=== PATIENT | female | born 1960 | race Caucasian/White ===

== ENCOUNTER → 2016-02-14 | Outpatient (REF) | payer OTHER | LOC: M LAB REF 16:44 | PROVIDERS: ATTEND Internal Medicine Medical Oncology | DX: E83.119 Hemochromatosis, unspecified (principal) ==

== ENCOUNTER → 2016-02-27 | Outpatient (REF) | payer OTHER | LOC: M LAB REF 16:43 | PROVIDERS: ATTEND Nurse Practitioner Adult Health | DX: L03.211 Cellulitis of face (principal) ==

== ENCOUNTER → 2016-03-20 | Outpatient (REF) | payer OTHER | LOC: M LAB REF 16:37 | PROVIDERS: ATTEND Internal Medicine Medical Oncology | DX: E83.119 Hemochromatosis, unspecified (principal) ==

== ENCOUNTER → 2016-04-18 | Outpatient (REF) | payer OTHER | LOC: M LAB REF 12:45 | PROVIDERS: ATTEND Internal Medicine Medical Oncology | DX: E83.110 Hereditary hemochromatosis (principal) ==

== ENCOUNTER → 2016-05-23 | Outpatient (REF) | payer OTHER | LOC: M LAB REF 18:37 | PROVIDERS: ATTEND Nurse Practitioner Adult Health | DX: J02.9 Acute pharyngitis, unspecified (principal) ==

== ENCOUNTER → 2016-05-30 | Outpatient (REF) | payer OTHER ==
[2016-05-30 18:19] LABS: PERCENT SATURATION 15.6 % (13.2-37.4)
== END ==
LOC: M LAB REF 16:25
PROVIDERS: ATTEND Internal Medicine Medical Oncology
DX: E83.119 Hemochromatosis, unspecified (principal)

== ENCOUNTER → 2016-06-27 | Outpatient (REF) | payer OTHER ==
[2016-06-27 18:00] LABS: PERCENT SATURATION 26.9 % (13.2-37.4)
== END ==
LOC: M LAB REF 16:41
PROVIDERS: ATTEND Internal Medicine Medical Oncology
DX: E83.119 Hemochromatosis, unspecified (principal)

== ENCOUNTER → 2016-07-01 | Outpatient (REF) | payer OTHER | LOC: M LAB REF 16:49 | PROVIDERS: ATTEND Internal Medicine Medical Oncology | DX: E83.119 Hemochromatosis, unspecified (principal) ==

== ENCOUNTER → 2016-08-06 | Outpatient (REF) | payer OTHER ==
[2016-08-06 13:59] LABS: PERCENT SATURATION 29.4 % (13.2-37.4)
== END ==
LOC: M LAB REF 13:13
PROVIDERS: ATTEND Internal Medicine Medical Oncology
DX: E83.110 Hereditary hemochromatosis (principal)

== ENCOUNTER → 2016-09-03 | Outpatient (REF) | payer OTHER ==
[2016-09-03 13:26] LABS: FERRITIN 72 NG/ML (8-252)
== END ==
LOC: M LAB REF 12:12
PROVIDERS: ATTEND Nurse Practitioner Adult Health
DX: E83.119 Hemochromatosis, unspecified (principal)

== ENCOUNTER → 2016-10-29 | Outpatient (REF) | payer OTHER ==
[2016-10-29 20:07] LABS: PERCENT SATURATION 23.4 % (13.2-45.0)
== END ==
LOC: M LAB REF 17:21
PROVIDERS: ATTEND Internal Medicine Medical Oncology
DX: E83.119 Hemochromatosis, unspecified (principal)

== ENCOUNTER → 2016-11-28 | Outpatient (REF) | payer OTHER ==
[2016-11-28 18:34] LABS: MICROSCOPIC INDICATED? MAN YES (NO)
[2016-11-28 18:39] LABS: BACTERIA, URINE SMALL AMOUNT; HYALINE CAST, URINE NONE SEEN /lpf (0-1); MICROSCOPIC EXAM PERFORMED; RBC, URINE 15-20 /hpf (0-3); SQUAMOUS EPITHELIAL CELL URINE SMALL AMOUNT /hpf (SMALL AMT); WBC, URINE 15-20 /hpf (0-3)
== END ==
LOC: M LAB REF 16:54
PROVIDERS: ATTEND Physician Assistant
DX: R30.0 Dysuria (principal)

== ENCOUNTER → 2017-01-06 | Outpatient (REF) | payer OTHER ==
[2017-01-06 19:46] LABS: PERCENT SATURATION 39.2 % (13.2-45.0)
== END ==
LOC: M LAB REF 17:39
PROVIDERS: ATTEND Internal Medicine Medical Oncology
DX: E83.110 Hereditary hemochromatosis (principal)

== ENCOUNTER → 2017-01-20 | Outpatient (REF) | payer OTHER ==
[2017-01-20 19:58] LABS: ANION GAP 10 MEQ/L (8-16); BLOOD UREA NITROGEN 16 MG/DL (7-18); CALCIUM LEVEL 9.2 MG/DL (8.5-10.1); CARBON DIOXIDE LEVEL 27 MEQ/L (21-32); CHLORIDE LEVEL 101 MEQ/L (98-107); CREATININE FOR GFR 0.92 MG/DL (0.55-1.02); GLOMERULAR FILTRATION RATE > 60.0 (>51); GLUCOSE, FASTING 111 MG/DL (70-105); POTASSIUM SERUM 4.3 MEQ/L (3.5-5.1); SODIUM LEVEL 138 MEQ/L (136-145)
== END ==
LOC: M LABDRAW1 19:02
PROVIDERS: ATTEND Orthopaedic Surgery
DX: Z01.810 Encounter for preprocedural cardiovascular examination (principal); G56.03 Carpal tunnel syndrome, bilateral upper limbs; I10 Essential (primary) hypertension; E11.9 Type 2 diabetes mellitus without complications

== ENCOUNTER → 2017-03-06 | Outpatient (REF) | payer OTHER ==
[2017-03-06 15:17] LABS: FERRITIN 124 NG/ML (8-252)
== END ==
LOC: M LAB REF 13:55
DX: E83.119 Hemochromatosis, unspecified (principal)

== ENCOUNTER → 2017-04-30 | Outpatient (REF) | payer OTHER ==
[2017-04-30 19:15] LABS: FERRITIN 164 NG/ML (8-252); IRON (FE) 147 UG/DL (50-170); PERCENT SATURATION 38.6 % (13.2-45.0); TOTAL IRON BINDING CAPACITY 381 UG/DL (250-450)
== END ==
LOC: M LAB REF 17:32
DX: E83.119 Hemochromatosis, unspecified (principal)

== ENCOUNTER → 2017-05-05 | Outpatient (CLI) | payer OTHER ==
[~2017-05-05] MED LIST: ISOVUE-370 76% 100ML VIAL (Q9967) As Ordered
== END ==
LOC: M RAD 15:58
DX: R06.02 Shortness of breath (principal); R00.0 Tachycardia, unspecified; R91.8 Other nonspecific abnormal finding of lung field; Z98.890 Other specified postprocedural states
CPT/HCPCS: Q9967

== ENCOUNTER → 2017-06-16 | Outpatient (REF) | payer OTHER ==
[2017-06-16 19:12] LABS: FERRITIN 38 NG/ML (8-252); IRON (FE) 89 UG/DL (50-170); PERCENT SATURATION 21.2 % (13.2-45.0); TOTAL IRON BINDING CAPACITY 419 UG/DL (250-450)
== END ==
LOC: M LAB REF 17:36
DX: E83.119 Hemochromatosis, unspecified (principal)

== ENCOUNTER 2017-07-24 09:30 | Day surgery (SDC) | payer OTHER ==
[2017-07-24] MEDS: NS 1,000 ML IV (09:45)
[2017-07-24 10:35] LABS: BEDSIDE GLUCOSE 374 MG/DL (70-105)
[2017-07-24] MEDS ORDERED: PROPOFOL 200 MG/20 ML VIAL As Ordered ×2 (11:14→11:22)
[2017-07-24] MEDS ORDERED: LIDOCAINE 2% INJ 100 MG/5 ML SDV (FOR ANES.) As Ordered (11:14)
== END 2017-07-24 12:26 | disposition home or self-care (01) ==
LOC: M OPP 09:30
DX: Z12.11 Encounter for screening for malignant neoplasm of colon (principal); D12.3 Benign neoplasm of transverse colon; D17.9 Benign lipomatous neoplasm, unspecified; K57.30 Diverticulosis of large intestine without perforation or abscess without bleeding; I10 Essential (primary) hypertension; E11.9 Type 2 diabetes mellitus without complications; E04.1 Nontoxic single thyroid nodule; K76.0 Fatty (change of) liver, not elsewhere classified; K21.9 Gastro-esophageal reflux disease without esophagitis; E83.119 Hemochromatosis, unspecified; F32.9 Major depressive disorder, single episode, unspecified; Z78.0 Asymptomatic menopausal state; Z87.891 Personal history of nicotine dependence; Z88.0 Allergy status to penicillin; Z88.1 Allergy status to other antibiotic agents; Z79.899 Other long term (current) drug therapy; Z79.4 Long term (current) use of insulin
CPT/HCPCS: 45385

== ENCOUNTER → 2017-08-01 | Outpatient (REF) | payer OTHER ==
[2017-08-01 14:32] LABS: FERRITIN 30 NG/ML (8-252); IRON (FE) 148 UG/DL (50-170); TOTAL IRON BINDING CAPACITY 448 UG/DL (250-450)
== END ==
LOC: M LAB REF 13:19
DX: E83.119 Hemochromatosis, unspecified (principal)

== ENCOUNTER → 2017-08-04 | Outpatient (CLI) | payer OTHER | LOC: M RAD 12:36 | DX: R91.1 Solitary pulmonary nodule (principal) | CPT/HCPCS: Q9967 ==

== ENCOUNTER → 2017-09-10 | Outpatient (REF) | payer OTHER ==
[2017-09-10 17:59] LABS: FERRITIN 110 NG/ML (8-252); IRON (FE) 158 UG/DL (50-170); TOTAL IRON BINDING CAPACITY 405 UG/DL (250-450)
== END ==
LOC: M LAB REF 16:54
DX: E83.119 Hemochromatosis, unspecified (principal)

== ENCOUNTER → 2017-09-15 | Outpatient (CLI) | payer OTHER | LOC: M RAD 14:52 | DX: E04.8 Other specified nontoxic goiter (principal) | CPT/HCPCS: 76536 ==

== ENCOUNTER → 2017-10-29 | Outpatient (REF) | payer OTHER ==
[2017-10-30 16:23] LABS: ESTIMATED AVERAGE GLUCOSE 100 MG/DL (60-110); HEMOGLOBIN A1c 5.1 %
[2017-11-03 13:13] LABS: HEPATITIS A ANTIBODY IGM NEGATIVE (NEGATIVE); HEPATITIS B CORE ANTIBODY IGM NEGATIVE (NEGATIVE); HEPATITIS B SURFACE ANTIGEN NEGATIVE (NEGATIVE)
[2017-11-03 13:13] LABS: HEPATITIS C VIRUS ABY INDEX 0.1 INDEX (<0.8)
== END ==
LOC: M LAB REF 10-30 13:58
DX: E11.42 Type 2 diabetes mellitus with diabetic polyneuropathy (principal)

== ENCOUNTER → 2017-10-29 | Outpatient (REF) | payer OTHER ==
[2017-10-29 14:22] LABS: FERRITIN 92 NG/ML (8-252); IRON (FE) 114 UG/DL (50-170); PERCENT SATURATION 26.9 % (13.2-45.0); TOTAL IRON BINDING CAPACITY 424 UG/DL (250-450)
== END ==
LOC: M LAB REF 13:28
DX: E83.119 Hemochromatosis, unspecified (principal)

== ENCOUNTER → 2018-01-06 | Outpatient (CLI) | payer OTHER | LOC: M RAD 08:19 | DX: R91.1 Solitary pulmonary nodule (principal) | CPT/HCPCS: Q9967 ==

== ENCOUNTER → 2018-06-25 | Outpatient (CLI) | payer OTHER ==
[~2018-06-25] MED LIST changes: +AZEL1SPR3; +BUPIVACAINE HCL 0.5% 10 ML VIAL As Ordered ONE; +CLAR10CA3 PO; +CLINDAMYCIN 600 MG/50 ML PREMIX BAG As Ordered ONE; +EFFE150C2 PO; +GLIM4TAB PO; +IBUP1TAB6 PO; +INVO300T PO; +ISOVUE-300 61% 100ML VIAL (Q9967) As Ordered ONE; -ISOVUE-370 76% 100ML VIAL (Q9967) As Ordered; +LASI20TA3 PO; +LIDOCAINE 2% MDV 20 ML VIAL As Ordered ONE; +LISI-538 PO; +LUNE3TAB36 PO; +METF-954 PO; +MULT1TAB10 PO; +MULTCAP PO; +TOPR25TA PO; +TRUL10IN SC; +TURMPOW PO; +ZANTTAB PO
--- NOTE | 2018-07-17 10:28 | REPIR ---
DATE OF PROCEDURE: 06/25/2018 ATTENDING SURGEON: Dr. Viky Stephens ASSISTANTS: Jenifer Menon and Nusrat Mario PREOPERATIVE DIAGNOSES: Hemochromatosis. Dysfunctional port. POSTOPERATIVE DIAGNOSES: Hemochromatosis. Dysfunctional port. PROCEDURE: Right internal jugular vein port removal. Ultrasound and fluoroscopic guided right internal jugular vein 23 cm length tunneled central venous catheter with subcutaneous port using a Bard PowerPort. INDICATION: The patient is a 58-year-old female with a port that is dysfunctional due to a kink in the catheter. The patient will undergo removal with replacement of a new catheter. ANESTHESIA: Local with 30 mL. FLUORO TIME: 0.1 minute. CONTRAST: None. COMPLICATIONS: None. DRAINS: None. SPECIMENS: None. PROCEDURE: The patient was taken to the angiography suite, placed supine on the angiography room table. The previous port was removed through the old incision which was then closed. Ultrasound was then used to guide cannulation of the right internal jugular vein. A catheter was advanced into the superior vena cava right atrial junction and tunneled through the anterior chest wall. The new pocket was created and the catheter was attached to the port which was placed in the pocket. The catheter and port were aspirated and noted to aspirate easily and then flushed with heparinized saline. The wounds were closed using #3-0 Monocryl in an inverted interrupted fashion. Steri-Strips and dressings were then applied. The patient tolerated the procedure well. All instrument, sponge, needle counts were correct at the end of the case. There were no complications. Dr. Stephens was present for and directed the entire case.
== END | disposition home or self-care (01) ==
LOC: M IRPRO 10:03
PROVIDERS: ATTEND Nurse Practitioner Family
DX: T82.898A Other specified complication of vascular prosthetic devices, implants and grafts, initial encounter (principal); E83.119 Hemochromatosis, unspecified
CPT/HCPCS: 36561; 36590; 77001; C1769; C1788; C1894; Q9967

== ENCOUNTER 2018-09-21 12:52 | Emergency (ER) | payer OTHER ==
[~2018-09-21] VITALS: Ht 172.7 cm; Wt 118.7 kg
[~2018-09-21 12:52] MED LIST changes: -BUPIVACAINE HCL 0.5% 10 ML VIAL As Ordered ONE; -CLINDAMYCIN 600 MG/50 ML PREMIX BAG As Ordered ONE; -ISOVUE-300 61% 100ML VIAL (Q9967) As Ordered ONE; -LIDOCAINE 2% MDV 20 ML VIAL As Ordered ONE; +ZANT150T40 PO; -ZANTTAB PO
[2018-09-21 15:43] LABS: BASO # 0.1 10^3/uL (0.0-0.2); BASO % 0.5 % (0.0-1.0); EOS # 0.2 10^3/uL (0.0-0.50); EOS % 1.7 % (0.0-3.0); HEMATOCRIT 44.2 % (36.0-47.0); HEMOGLOBIN 14.8 g/dl (12.0-15.5); LYMPH # 1.7 10^3/uL (1.5-4.5); LYMPH % 17.7 % (24.0-44.0); MEAN CORPUSCULAR HEMOGLOBIN 33.2 pg (27.0-33.0); MEAN CORPUSCULAR HGB CONC 33.5 g/dl (32.0-36.5); MEAN CORPUSCULAR VOLUME 99.1 fl (80.0-96.0); MONO # 1.2 10^3/uL (0.0-0.8); MONO % 12.6 % (0.0-5.0); NEUTROPHILS # 6.3 10^3/uL (1.8-7.7); NEUTROPHILS % 67.2 % (36.0-66.0); PLATELET COUNT, AUTOMATED 145 10^3/uL (150-450); RED BLOOD COUNT 4.46 10^6/uL (4.00-5.40); WHITE BLOOD COUNT 9.4 10^3/uL (4.0-10.0)
[2018-09-21 16:03] LABS: ERYTHROCYTE SEDIMENTATION RATE 8 mm/hr (0-30)
[2018-09-21 16:06] LABS: ALBUMIN 3.7 GM/DL (3.2-5.2); BILIRUBIN,DIRECT 0.7 MG/DL (0.0-0.2); C REACTIVE PROTEIN QUANTITATIV 2.6 MG/DL (0.00-0.30)
[2018-09-21] MEDS ORDERED: NS 1,000 ML IV ONE (16:30)
[2018-09-21] MEDS ORDERED: ISOVUE-370 76% 100ML VIAL (Q9967) As Ordered ONE (16:38)
[2018-09-21] MEDS ORDERED: metroNIDAZOLE 500 MG in APPROPRIATE DILUENT 1 EA IV ONE (16:45)
--- NOTE | 2018-09-21 18:55 | REPVR ---
EXAM: CT Abdomen and Pelvis With Contrast EXAM DATE/TIME: 09/21/2018 4:25 PM CLINICAL HISTORY: 58 years old, female; Other: Perirectal abscess; Additional info: Larisa-rectal abscess TECHNIQUE: Imaging protocol: Axial computed tomography images of the abdomen and pelvis with intravenous contrast. Coronal and sagittal reformatted images were created and reviewed. Radiation optimization: All CT scans at this facility use at least one of these dose optimization techniques: automated exposure control; mA and/or kV adjustment per patient size (includes targeted exams where dose is matched to clinical indication); or iterative reconstruction. Contrast material: ISOVUE 370;Contrast volume: 100 ml;Contrast route: POWER PORT; COMPARISON: Chest CT 01/06/2018. FINDINGS: Lungs: Series 204 image 6, 8 mm left lower lobe nodule. Image 18, 3 mm left lower lobe nodule. Image 19, right lower lobe 6 mm pleural-based nodule. Image 8, 4 mm right lower lobe nodule. The additional smaller nodules at the lung bases. These are all stable compared with the prior chest CT. these nodules are already being followed by chest CT. Liver: There is diffuse fatty infiltration of the liver. No focal lesion. Gallbladder and bile ducts: Normal. No calcified stones. No ductal dilation. Pancreas: The pancreas is normal. Spleen: The spleen is normal. Adrenals: Adrenals are normal. Kidneys and ureters: The kidneys are normal. There is no hydronephrosis. Stomach and bowel: There are a few sigmoid diverticula. There is no adjacent inflammation and there is no wall thickening. Appendix: No evidence of appendicitis. Intraperitoneal space: Normal. No free air. No significant fluid collection. Vasculature: Normal. No abdominal aortic aneurysm. Lymph nodes: Normal. No enlarged lymph nodes. Bladder: The bladder is normal with no evidence of calculi. Reproductive: Unremarkable as visualized. Bones/joints: A 7.5 cm intramuscular lipoma noted in the right hip adductors. There are degenerative changes of the lumbar spine most severe at L5-S1. No fracture. Soft tissues: As best seen on series 201 images 156-159 there is a small, 2 cm, soft tissue density in the right perianal fat. No definite tract to the skin surface is identified. IMPRESSION: 2 cm density in the right perianal fat consistent with a small abscess. Electronically signed by: Matthew Velasquez On 09/21/2018 18:55:41 PM
[2018-09-21] MEDS ORDERED: FLAG500T PO (20:46)
[2018-09-21] MEDS ORDERED: BACT800T5 PO (20:46)
[2018-09-21 21:32] VITALS: BP 139/94
--- NOTE | 2018-09-22 08:24 | REP ---
Chest x-ray: Two views. History: Verify port. No comparison chest x-ray. Comparison chest CT study January 06, 2018. Findings: There is an Odlxzz-C-Czmj catheter in place with its tip in the expected location of the superior vena cava. There is no evidence of pneumothorax or hydrothorax. Cardiomediastinal silhouette is unremarkable. Lung madrigal are clear. Impression: No acute disease. Rmsdor-O-Gock catheter in place on the right. Electronically Signed by Adrian Grant MD 09/22/2018 07:25 P
--- NOTE | 2018-09-27 06:51 | ED PDOC ---
Post-Departure Follow-Up dr flores and kathia saleem faxed formal report of ct abd/pfor fu Pretty Medrano MD Sep 27, 2018 06:51
== END 2018-09-21 21:25 | disposition home or self-care (01) ==
LOC: M ED 12:52
DX: K61.1 Rectal abscess (principal); E11.9 Type 2 diabetes mellitus without complications; I10 Essential (primary) hypertension; Z95.9 Presence of cardiac and vascular implant and graft, unspecified; Z79.899 Other long term (current) drug therapy; Z88.0 Allergy status to penicillin; Z88.1 Allergy status to other antibiotic agents
CPT/HCPCS: 36415; 71046; 74177; 80047; 80076; 83605; 85025; 85652; 86140; 87040; 87070; 87077; 87186; 87205; 96365; 96366; 99284; Q9967

== ENCOUNTER → 2018-12-14 | Outpatient (CLI) | payer OTHER ==
[~2018-12-14] MED LIST changes: +BACT800T5 PO; +FLAG500T PO; -GLIM4TAB PO; +GLIM4TAB3 PO; +ISOVUE-370 76% 100ML VIAL (Q9967) As Ordered ONE
--- NOTE | 2018-12-14 15:08 | REP ---
CT of the chest with IV contrast for lung nodule. Followup: There is a 7.9 mm nodule in the posterior basilar segment of the left lower lobe on image 60. This measured 7.9 mm on 04/15/2017 and 7.8 mm on 01/06/2018. There is a 5.7 mm pleural-based nodule in the medial basilar segment right lower lobe on image 74. This measured 5.8 mm on 01/07/1928 and 6.9 mm on 05/05/2017. There are multiple other small lung nodules, not significantly changed from both prior studies. There are no infiltrates. There are no pleural effusions. There is no mediastinal or hilar lymph node enlargement. There is no axillary lymph node enlargement. The thoracic aorta is unremarkable. Cardiac size is normal. The visualized upper abdomen there appears to be bilateral renal cortical scarring. There is no adrenal mass. Impression: Multiple lung nodules, not significantly changed, as described. Bilateral renal cortical scarring, unchanged. Electronically Signed by Keshav Acosta MD 12/14/2018 03:00 P
== END ==
LOC: M RAD 13:14
PROVIDERS: ATTEND Nurse Practitioner Family
DX: R91.8 Other nonspecific abnormal finding of lung field (principal)
CPT/HCPCS: 71260; Q9967

== ENCOUNTER → 2019-05-31 | Outpatient (CLI) | payer OTHER ==
[~2019-05-31] MED LIST changes: -GLIM4TAB3 PO; +GLIM4TAB5 PO; -ISOVUE-370 76% 100ML VIAL (Q9967) As Ordered ONE; +LIDO2.5C15 TOP; +NAPR-837 PO
== END ==
LOC: M LABSMTC 09:56
PROVIDERS: ATTEND Family Medicine
DX: Z11.59 Encounter for screening for other viral diseases (principal); Z20.828 Contact with and (suspected) exposure to other viral communicable diseases

== ENCOUNTER → 2019-08-05 | Outpatient (REF) | payer OTHER | LOC: M LAB REF 12:48 | PROVIDERS: ATTEND Registered Nurse | DX: E83.110 Hereditary hemochromatosis (principal); R71.8 Other abnormality of red blood cells ==

== ENCOUNTER → 2019-11-18 | Outpatient (REF) | payer OTHER ==
[~2019-11-18] MED LIST changes: +ASPI81TA86 PO
[2019-11-18 11:59] LABS: HEMOGLOBIN 14.4 g/dl (12.0-15.5); MEAN CORPUSCULAR HEMOGLOBIN 34.5 pg (27.0-33.0); MEAN CORPUSCULAR HGB CONC 32.7 g/dl (32.0-36.5); MEAN CORPUSCULAR VOLUME 105.5 fl (80.0-96.0); PLATELET COUNT, AUTOMATED 153 10^3/uL (150-450); RED BLOOD COUNT 4.17 10^6/uL (4.00-5.40)
[2019-11-18 12:28] LABS: ALBUMIN 3.6 GM/DL (3.2-5.2); BILIRUBIN,TOTAL 1.2 MG/DL (0.2-1.0); CALCIUM LEVEL 9.2 MG/DL (8.8-10.2); CREATININE FOR GFR 1.1 MG/DL (0.55-1.30); GLOMERULAR FILTRATION RATE 53.9 (>45); MAGNESIUM LEVEL 1.4 MG/DL (1.8-2.4); POTASSIUM SERUM 4.5 MEQ/L (3.5-5.1); THYROID STIMULATING HORMONE 2.59 uIU/ML (0.358-3.740)
[2019-11-19 10:45] LABS: HEMOGLOBIN A1c 6.1 %
== END ==
LOC: M LAB REF 11:24
PROVIDERS: ATTEND Nurse Practitioner Adult Health
DX: E83.110 Hereditary hemochromatosis (principal); R00.0 Tachycardia, unspecified; I10 Essential (primary) hypertension

== ENCOUNTER → 2020-02-25 | Outpatient (CLI) | payer OTHER ==
[~2020-02-25] MED LIST changes: -LISI-538 PO; +LISI20TA33 PO
--- NOTE | 2020-03-01 10:28 | REP ---
INDICATION: MULTIPLE PULMONARY NODULES COMPARISON: 12/14/2018 TECHNIQUE: Axial noncontrast images from the thoracic inlet to the upper abdomen with coronal and sagittal reformations. This CT examination was performed using the following dose reduction techniques: Automated exposure control, adjustment of mA and/or kv according to the patient's size, and use of iterative reconstruction technique. FINDINGS: The lung madrigal are well aerated and demonstrate mild age-related interstitial changes. Few scattered bilateral densities primarily reflect small focal areas of scarring. Few noncalcified nodules are also identified including a stable 7.9 mm soft tissue nodule in the left lower lobe (image 56). No acute consolidation, new nodule or mass lesion otherwise appreciated. No pleural effusion. No pneumothorax. Tracheobronchial tree is patent. No obvious adenopathy. Mediastinum including thoracic aorta, pulmonary vasculature, and heart/pericardium are stable and relatively normal. Surrounding musculoskeletal structures demonstrate age-related degenerative changes without acute osseous abnormality. IMPRESSION: Chronic stable nodules. No acute mediastinal or pleuroparenchymal process appreciated. <Electronically signed by Alfa Oconnor > 03/01/20 1024
== END ==
LOC: M RAD 08:11
PROVIDERS: ATTEND Internal Medicine Hematology & Oncology
DX: R91.8 Other nonspecific abnormal finding of lung field (principal); E83.119 Hemochromatosis, unspecified

== ENCOUNTER → 2020-04-04 | Outpatient (REF) | payer OTHER ==
[~2020-04-04] MED LIST changes: +ECOT81TA5 PO; +MAGN64TASA PO; +METO1TAB33 PO; +MULT-90 PO; +PEPC10TA6 PO
== END ==
LOC: M LAB REF 12:06
PROVIDERS: ATTEND Nurse Practitioner Adult Health
DX: I47.1 Supraventricular tachycardia (principal)

== ENCOUNTER → 2020-07-24 | Outpatient (CLI) | payer OTHER ==
[~2020-07-24] MED LIST changes: +FAMO20TA PO; +LIDO1CRE42 TOP; -LIDO2.5C15 TOP
--- NOTE | 2020-07-24 09:55 | REP ---
INDICATION: IRON OVERLOAD TECHNIQUE: Real time B-mode hart scale ultrasound examination using curved array transducer. FINDINGS: Liver is increased in echogenicity and demonstrates poor through transmission suggesting fatty infiltration. No focal hepatic lesion identified. The spleen is enlarged and measures 14.7 x 5.6 x 12.8 cm (splenic index 1053). No focal splenic lesions are identified. Pancreas is limited in evaluation due to interposed bowel gas. Patient is status post cholecystectomy. No biliary ductal dilatation is appreciated and the common bile duct measures 5.1 mm in diameter. The bilateral kidneys are normal in reniform shape without hydronephrosis or obvious abnormality. Right kidney measures 13.8 x 5.5 x 4.2 cm. Left kidney measures 13.1 x 5.9 x 5.2 cm. No ascites. IMPRESSION: 1. Findings consistent with hepatosteatosis/hepatocellular disease. No focal hepatic lesion identified by ultrasound. 2. Splenomegaly. <Electronically signed by Alfa Oconnor > 07/24/20 [id number]
== END ==
LOC: M RAD 08:35
PROVIDERS: ATTEND Internal Medicine Hematology & Oncology
DX: R79.0 Abnormal level of blood mineral (principal)

== ENCOUNTER 2020-09-25 06:13 | Inpatient (IN) | payer OTHER ==
[~2020-09-25] VITALS: Ht 175.3 cm; Wt 135.1 kg
[2020-09-25] VITALS (41 sets, daily range): BP systolic 64–139; BP diastolic 34–75
[~2020-09-25 06:13] MED LIST changes: +LISI10TA22 PO
[2020-09-25] MEDS ORDERED: NS IV ONE (06:35)
[2020-09-25 06:50] LABS: VENOUS BASE EXCESS -11.8 (-2.0-2.0); VENOUS HCO3 15.1 MEQ/L (23.0-27.0); VENOUS O2 SATURATION 80.5 % (60.0-80.0); VENOUS PARTIAL PRESSURE CO2 37.3 mmHg (38.0-50.0); VENOUS PH 7.224 UNITS (7.330-7.430); VENOUS STANDARD HCO3 15.1 MEQ/L; VENOUS TOTAL CO2 16.2 MEQ/L (24.0-28.0)
[2020-09-25 06:59] LABS: HEMATOCRIT 40.8 % (36.0-47.0); HEMOGLOBIN 13.3 g/dl (12.0-15.5); MEAN CORPUSCULAR HEMOGLOBIN 34.2 pg (27.0-33.0); MEAN CORPUSCULAR HGB CONC 32.6 g/dl (32.0-36.5); MEAN CORPUSCULAR VOLUME 104.9 fl (80.0-96.0); RED BLOOD COUNT 3.89 10^6/uL (4.00-5.40); WHITE BLOOD COUNT 3.1 10^3/uL (4.0-10.0)
[2020-09-25 07:12] LABS: INR 1.66
[2020-09-25 07:13] LABS: PARTIAL THROMBOPLASTIN TIME 39.6 SECONDS (25.9-37.0)
[2020-09-25 07:21] LABS: ALT/SGPT 78 U/L (12-78); AMYLASE 25 U/L (25-115); BILIRUBIN,DIRECT 1.7 MG/DL (0.0-0.2); BILIRUBIN,TOTAL 2.3 MG/DL (0.2-1.0); BLOOD UREA NITROGEN 30 MG/DL (7-18); CALCIUM LEVEL 7.8 MG/DL (8.8-10.2); CARBON DIOXIDE LEVEL 15 MEQ/L (21-32); CHLORIDE LEVEL 101 MEQ/L (98-107); CK-MB VALUE MASS 4.4 NG/ML (<3.6); CPK CREATINE PHOSPHOKINASE 237 U/L (26-192); CREATININE FOR GFR 2.14 MG/DL (0.55-1.30); GLOMERULAR FILTRATION RATE 24.9 (>45); GLUCOSE, FASTING 177 MG/DL (70-100); LIPASE 69 U/L (73-393); MB/CK RELATIVE INDEX 1.86 (< OR =4); POTASSIUM SERUM 3.6 MEQ/L (3.5-5.1); SODIUM LEVEL 137 MEQ/L (136-145); TOTAL PROTEIN 6.1 GM/DL (6.4-8.2); TROPONIN I < 0.02 NG/ML (< 0.10)
--- NOTE | 2020-09-25 07:22 | REPVR ---
PROCEDURE INFORMATION: Exam: XR Chest Exam date and time: 09/25/2020 6:56 AM Age: 60 years old Clinical indication: Other: Sepsis; Additional info: Sepsis/shock TECHNIQUE: Imaging protocol: XR of the chest. Views: 1 view. COMPARISON: TX Chest, 2 view PA, Lat 09/21/2018 5:40:24 PM (report not provided) FINDINGS: Tubes, catheters and devices: Right-sided Port-A-Cath is again present. Lungs: Unremarkable. No consolidation. Pleural spaces: Unremarkable. No pleural effusion. No pneumothorax. Heart/Mediastinum: The cardiomediastinal silhouette is fairly stable in appearance, allowing for differences in technique. Bones/joints: Unremarkable. IMPRESSION: No evidence for acute pulmonary disease. Electronically signed by: Brian Antonio On 09/25/2020 07:22:20 AM
[2020-09-25] MEDS ORDERED: CEFEPIME HCL 2 GM in D5W MINI-BAG PLUS 50 ML IV ONE (07:25)
[2020-09-25 07:33] LABS: RSV AMPLIFICATION NEGATIVE (NEGATIVE)
[2020-09-25] MEDS ORDERED: SODIUM CHLORIDE 0.9% INJ 10 ML SYR IV PRN ×2 (07:35→17:45)
[2020-09-25 07:59] LABS: PLATELET COUNT, AUTOMATED 55 10^3/uL (150-450)
[2020-09-25 08:07] LABS: EOSINOPHILS 2 % (0-3); LYMPHOCYTES 4 % (16-44); METAMYELOCYTES 13 % (0-0); MONOCYTES 3 % (0-5); MYELOCYTES 3 % (0-0); NEUTROPHILS 43 % (28-66)
[2020-09-25 08:09] LABS: ANISOCYTOSIS 1+; POIKILOCYTOSIS 1+
[2020-09-25 08:10] LABS: PLATELET ESTIMATE DECREASED (NORMAL)
--- NOTE | 2020-09-25 08:35 | REP ---
INDICATION: sepsis COMPARISON: 02/25/2020 TECHNIQUE: Axial noncontrast images from the thoracic inlet to the upper abdomen with coronal and sagittal reformations. This CT examination was performed using the following dose reduction techniques: Automated exposure control, adjustment of mA and/or kv according to the patient's size, and use of iterative reconstruction technique. FINDINGS: Current examination demonstrates suboptimal inspiratory effort and decreased lung volumes causing crowding and mild prominence to the pulmonary vasculature and interstitium when compared with 02/25/2020. Small scattered pulmonary nodules are again identified and similar to prior examination. However, there appears to be a new ill-defined perivascular nodular density in the right lower lobe (series 204; images 58-62), and few small 2-3 mm new subpleural nodules in the posterior lower lobes cannot definitively be excluded. No acute area consolidation/pneumonia, effusion, or pneumothorax. Tracheobronchial tree is patent. No obvious significant adenopathy identified. Mediastinum demonstrates relatively normal appearance to the thoracic aorta, pulmonary vasculature, and heart/pericardium [id number]-[id number]-[id number] noted with tip in the SVC. Surrounding musculoskeletal structures are intact and without acute osseous abnormality. IMPRESSION: Somewhat limited due to poor inspiratory effort. A small new perivascular density in the right lower lobe is suspected along with few scattered relatively stable small pulmonary nodules. Three month short-term follow-up examination is recommended for further investigation. No acute consolidation/pneumonia/atelectasis or effusion. <Electronically signed by Alfa Oconnor > 09/25/20 0826
--- NOTE | 2020-09-25 08:41 | REP ---
INDICATION: sepsis COMPARISON: 09/21/2018 TECHNIQUE: Axial noncontrast images from the lung bases to the pubic symphysis with coronal and sagittal reformations. This CT examination was performed using the following dose reduction techniques: Automated exposure control, adjustment of mA and/or kv according to the patient's size, and use of iterative reconstruction technique. FINDINGS: Liver is mildly enlarged and demonstrates a subtle nodular contour and heterogeneous echotexture suggesting cirrhosis. Few small right upper quadrant and almas hepatis lymph nodes are suggested and nonspecific. Spleen, pancreas, bilateral adrenal glands and kidneys are normal. The enteric system is without obstruction or acute inflammatory process. Normal terminal ileum identified in the right lower quadrant. Few scattered colonic and sigmoid diverticula noted without acute diverticulitis. Pelvis demonstrates Jaramillo catheter in collapsed bladder and prior hysterectomy. Ovoid structure in the left hemipelvis with partial rim calcification is unchanged and likely represents chronic benign changes to the left adnexa. Stable lipoma anterior to the right inferior pubic ramus unchanged. No ascites. No free air. No adenopathy. No focal inflammatory stranding. Abdominal aorta without aneurysm. Musculoskeletal structures are intact and without acute osseous abnormality. IMPRESSION: No acute abdominopelvic pathology appreciated. Chronic findings as described above including findings to suggest cirrhosis. <Electronically signed by Alfa Oconnor > 09/25/20 [id number]
[2020-09-25 09:26] LABS: D-DIMER QUANT > 4000 ng/ml (<500)
[2020-09-25] MEDS ORDERED: NS 1,000 ML IV SCH ×2 (09:30→21:55)
[2020-09-25] MEDS ORDERED: fentaNYL 100 MCG/2 ML INJECTION (J3010) IV ONE (09:30)
[2020-09-25] MEDS ORDERED: metroNIDAZOLE 500 MG in IV 1 EA IV SCH (10:00)
[2020-09-25] MEDS ORDERED: LORA-674 PO (10:02)
[2020-09-25] MEDS ORDERED: TRUL0.5I SC (10:03)
[2020-09-25] MEDS ORDERED: HOME MED LIST COMPLETE! XX SCH (10:05)
[2020-09-25] MEDS ORDERED: CEFEPIME HCL 1 GM in D5W MINI-BAG PLUS 50 ML IV SCH ×2 (11:00→20:00)
[2020-09-25] MEDS: PANTOPRAZOLE 40MG VIAL (C9113 PER 1) IV SCH (12:20)
[2020-09-25] MEDS: ONDANSETRON 4MG/2ML VIAL IV PRN ×2 (12:34→18:57)
[2020-09-25] MEDS ORDERED: ACETAMINOPHEN *IV* 1,000 MG in IV 1 EA IV ONE ×2 (12:50→15:00)
[2020-09-25 13:24] LABS: LDH LACTATE DEHYDROGENASE 392 U/L (84-246)
--- NOTE | 2020-09-25 13:41 | HPEPDOC ---
General Date of Admission 09/25/20 Date of Service: Sep 25, 2020 Chief Complaint The patient is a 60-year-old female admitted with a reason for visit of Short Of Breath. Source: Patient, RN/MD History of Present Illness 60-year-old female with past medical history of hemochromatosis, cirrhosis of liver as per CT scan, atrial fibrillation, hypertension, GERD, diabetes, pulmo nary nodules presented to the emergency room with 3 days history of diarrhea nausea and vomiting and shortness of breath since last night. Patient reports that the patient had some fried chicken for lunch on Friday and then from Friday night she started having diarrhea.She had 3 episodes of diarrhea on Friday night. The diarrhea was watery without any blood in it. She did not have any abdominal pain or cramps. The next day she vomited multiple times and had dry heaves but did not have much diarrhea. Diarrhea again restarted yesterday and overnight she had several episodes at least 4-6 times watery and could not control it and she had stool incontinence and soiled her bed. She started feeling short of breath from last night and so presented to the emergency room today. Patient also complained of bilateral shoulder pain rates it 8/10 in intensity and sharp aching in nature without any radiation. In the ED on presentation she was found to be hypotensive with a blood pressure of 73/46, She was tachypneic, and acidotic with a ph of 7.22/ pco2 37/ po2 53. Her lactate was 11.7. Her wbc was 3.1 with 32 % bands. She was in PARDEEP with a creatinine of 2.1. Patient received 30 ml/ kg loading dose of IVF with improvement in Blood pressure to 90- 110/ 50-60 range. However even after . 3l of fluid patient did not make any urine. Patient was admitted for Severe sepsis with PARDEEP, high anion gap metabolic acidosis. Home Medications Scheduled Aspirin (Ecotrin) 81 Mg Tablet.dr, 81 MG PO QHS, (Reported) Dulaglutide (Trulicity) 1.5 Mg/0.5 Ml Pen.injctr, 1.5 MG SC QWEEK, (Reported) WEDNESDAYS Famotidine (Famotidine) 20 Mg Tablet, 20 MG PO DAILY, (Reported) Glimepiride (Glimepiride) 4 Mg Tab, 4 MG PO DAILY, (Reported) Lisinopril (Lisinopril) 10 Mg Tablet, 10 MG PO DAILY, (Reported) Loratadine (Loratadine) 10 Mg Tablet, 10 MG PO DAILY, (Reported) Magnesium Chloride (Mag64) 64 Mg Tablet.dr, 2 TAB PO QHS, (Reported) Metformin HCl (Metformin HCl) 850 Mg Tab, 850 MG PO BID, (Reported) Metoprolol Succinate (Metoprolol Succinate) 100 Mg Tab.er.24h, 100 MG PO BID, (Reported) Venlafaxine HCl (Effexor Xr) 150 Mg Cap, 150 MG PO DAILY, (Reported) Allergies Coded Allergies: ampicillin (Verified Allergy, Intermediate, rash, 05/07/18) ofloxacin (Verified Allergy, Intermediate, rash, hives, 05/07/18) Past Medical History Medical History Hereditary hemochromatosis, heterozygote [id number], on as-needed phlebotomy, on average q. 4 months now with some symptoms of low iron stores with fatigue and pagophagia Cirrhosis of liver Pulmonary nodules followed since 04/2017, subcentimeter. Left thyroid cyst followed expectantly under PCP. Malabsorption syndrome secondary to H2 blockade Hypertension GERD Diabetes Atrial Fibrillation Morbid Obesity BMI 39.2 Surgical History tonsillectomy cholecystectomy appendectomy C-sections and D& C left knee surgery Carpal tunnel surgery Hysterectomy Thyroid surgery Chemo port insertion. Family History Father is carrier cousin had hemochromatosis. Social History * Smoker: former Smoker Alcohol: heavy (Daily drinker as per son. Last drink on 09/22/20) A-FIB/CHADSVASC A-FIB History Current/History of A-Fib/PAF?: Yes Current PO Anticoag Therapy: No Review of Systems Constitutional: Reports: Weakness, Fatigue; Denies: Chills, Fever, Night Sweats Eyes: Denies: Pain, Vision change ENT: Denies: Head Aches, Ear Pain, Dysphagia Skin: Denies: Rash, Lesions, Breakdown Pulmonary: Reports: Dyspnea; Denies: Cough, Pleuritic Chest Pain Cardiovascular: Reports: Lt Headedness; Denies: Chest Pain, Palpitations Gastrointestinal: Reports: Nausea, Vomiting, Diarrhea Genitourinary: Reports: Other Symptoms (poor urine output) Hematologic: Denies: Bruising, Bleeding Excessively Musculoskeletal: Reports: Back Pain, Shoulder Pain Neurological: Denies: Weakness, Numbness, Change in speech, Confusion Psych: Denies: Memory Issues Physical Examination General Exam: Positive: Alert, Cooperative, Mild Distress Eye Exam: Positive: PERRLA, Conjunctiva & lids normal, EOMI; Negative: Sclera icteric ENT Exam: Positive: Atraumatic, Pharynx Normal Neck Exam: Positive: Supple; Negative: JVD, thyromegaly Chest Exam: Positive: Clear to auscultation, Diminished Heart Exam: Positive: Rate Normal, Regular Rhythm, Normal S1, Normal S2; Negative: Murmurs, Rubs Abdomen Exam: Positive: BS Hyperactive, Soft; Negative: Tenderness Extremity Exam: Negative: Clubbing, Cyanosis, Edema Skin Exam: Positive: Nl turgor and temperature; Negative: Breakdown Psych Exam: Positive: Memory Intact, Oriented x 3 Vital Signs Vital Signs Date Time Temp Pulse Resp B/P (MAP) Pulse Ox O2 Delivery O2 Flow Rate FiO2 09/25/20 08:31 79 28 99 Nasal Cannula 3.0 09/25/20 08:30 167/82 (110) 09/25/20 06:45 100.1 Laboratory Data Labs 24H Laboratory Tests 2 09/25/20 06:26: Immature Granulocyte % (Auto) , Neutrophils (%) (Auto) , Nucleated Red Blood Cells % (auto) 0.0, Neutrophils 43, Band Neutrophils 32H, Lymphocytes (Manual) 4L, Monocytes (Manual) 3, Eosinophils (Manual) 2, Metamyelocytes 13H, Myelocytes 3H, Poikilocytosis 1+, Anisocytosis 1+, Macrocytosis 1+, Platelet Estimate DECREASED, Immature Platelet Fraction 7.1, Anion Gap 21H, Glomerular Filtration Rate 24.9L, Lactic Acid Level 11.7*H, Calcium Level 7.8L, Total Bilirubin 2.3H, Direct Bilirubin 1.7H, Aspartate Amino Transf (AST/SGOT) 161H, Alanine Aminotransferase (ALT/SGPT) 78, Alkaline Phosphatase 79, Total Creatine Kinase 237H, Creatine Kinase MB 4.4H, Creatine Kinase MB Relative Index 1.86, Troponin I < 0.02, C-Reactive Protein, Quantitative 18.90H, Total Protein 6.1L, Albumin 3.0L, Albumin/Globulin Ratio 1.0L, Amylase Level 25, Lipase 69L 09/25/20 06:32: Prothrombin Time 20.0H, Prothromb Time International Ratio 1.66, Activated Partial Thromboplast Time 39.6H 09/25/20 06:39: Blood Gas Bicarbonate Standard 15.1, Venous Blood pH 7.224L, Venous Blood Partial Pressure CO2 37.3L, Venous Blood Partial Pressure O2 53.0H, Venous Blood Total Carbon Dioxide 16.2L, Venous Blood HCO3 15.1L, Venous Blood Oxygen Saturation 80.5H, Venous Blood Base Excess -11.8L, Coronavirus (COVID-19)(PCR) NEGATIVE, Influenza Type A (RT-PCR) NEGATIVE, Influenza Type B (RT-PCR) NEGATIVE, Respiratory Syncytial Virus (PCR) NEGATIVE 09/25/20 06:57: POC pH (Misc Panel) 7.277L, POC Base Excess (Misc Panel) -11.0L, POC Saturated Percent O2 (Misc) 100H, POC pO2 (Misc Panel) 452.0H, POC pCO2 (Misc Panel) 32.9L, POC HCO3 (Misc Panel) 15.3L, POC Total CO2 (Misc Panel) 16.0L CBC/BMP Laboratory Tests 09/25/20 06:26 Microbiology Microbiology 09/25/20 Blood Culture, Received Pending 09/25/20 Blood Culture, Received Pending Assessment/Plan 60-year-old female with past medical history of hemochromatosis, cirrhosis of liver as per CT scan, atrial fibrillation, hypertension, GERD, diabetes, pulmonary nodules presented to the emergency room with 3 days history of diarrhea nausea and vomiting and shortness of breath since last night. Patient reports that the patient had some fried chicken for lunch on Friday and then from Friday night she started having diarrhea.She had 3 episodes of diarrhea on Friday night. The diarrhea was watery without any blood in it. She did not have any abdominal pain or cramps. The next day she vomited multiple times and had dry heaves but did not have much diarrhea. Diarrhea again restarted yesterday and overnight she had several episodes at least 4-6 times watery and could not control it and she had stool incontinence and soiled her bed. She started feeling short of breath from last night and so presented to the emergency room today. Patient also complained of bilateral shoulder pain rates it 8/10 in intensity and sharp aching in nature without any radiation. In the ED on presentation she was found to be hypotensive with a blood pressure of 73/46, She was tachypneic, and acidotic with a ph of 7.22/ pco2 37/ po2 53. Her lactate was 11.7. Her wbc was 3.1 with 32 % bands. She was in PARDEEP with a creatinine of 2.1. Patient received 30 ml/ kg loading dose of IVF with improvement in Blood pressure to 90- 110/ 50-60 range. However even after . 3l of fluid patient did not make any urine. CT abdomen and pelvis did not show any abnormality. Patient was admitted for Severe sepsis with PRADEEP, high anion gap metabolic acidosis. Severe sepsis due to abdominal infection continue cefepime and flagyl and azithromycin. finished IVF loading . will start bicarb gtt. Enteropathogenic E coli gastroenteritis. with intractable diarrhea, vomiting and dehydration CT abd and pelvis with no abnormality. continue antibiotics, IVF, zofran. will also give azithromycin. Oliguric PARDEEP due to GI losses with dehydration and hypotension on the back ground of being on ACEI. zamudio in place. CT abd and pelvis no obstruction Will maintain a MAP> 65 start on Bicarb GTT. Nephrology consulted. No nephrotoxic medications. Thrombocytopenia likely due to sepsis. She does have h/o cirrhosis also though never thrombocytopenic. Lactic acidosis due to sepsis and hypotension. Received IVF loading. High anion gap metabolic acidosis due to lactic acidosis and PARDEEP start bicarb gtt. Diabetes hold all antidiabetic medications. Patient is not tolerating Po diet yet. will check fs q 6 hours. Hereditary hemochromatosis with cirrhosis in CT scan. follows with oncology for intermittent phlebotomy. Hyppertension now hypotensive Hold all antihypertensive medications Paroxysmal Afib will hold metoprolol. Rate is controlled at this time. will continue ASA when taking PO. GERD continue PPI. Alcohol use disorder will place on [place] protocol. DVT prophylaxis will use TEDS as has thrombocytopenia. Plan / VTE VTE Prophylaxis Ordered?: Yes GEORGE MOMIN MD Sep 25, 2020 09:10
[2020-09-25] MEDS ORDERED: SODIUM BICARBONATE 150 MEQ in STERILE WATER LITER BAG 1,000 ML IV SCH (15:00)
[2020-09-25] MEDS: PROMETHAZINE INJ 25 MG/ML VIAL (J2550) IV PRN ×2 (15:26→23:03)
[2020-09-25] MEDS ORDERED: AZITHROMYCIN INJ 500 MG, VIAL MATE ADAPTER 1 EACH in NS 250 ML IV SCH (16:00)
--- NOTE | 2020-09-25 16:22 | REP ---
INDICATION: thrombocytopenia, r/o dvt. COMPARISON: None. TECHNIQUE: Bilateral lower extremity duplex venous scanning is performed from the groin to the ankle level. FINDINGS: The deep veins are anechoic and fully compressible from the groin to the popliteal fossa in the left and right lower extremity. Color flow imaging is homogeneous. Spectral Doppler interrogation demonstrates intact respiratory variation in flow and normal manual augmentation of flow. There is no evidence of deep vein thrombosis in the femoropopliteal veins. There is no evidence of deep vein thrombosis in the visualized calf veins. IMPRESSION: No evidence of DVT in the femoropopliteal veins. No DVT in the visible portions of the calf veins. <Electronically signed by Dylan Grant > 09/25/20 [id number]
[2020-09-25] MEDS: MIDODRINE 5 MG TAB PO SCH (16:31)
[2020-09-25 16:35] LABS: ALBUMIN 2.8 GM/DL (3.2-5.2); BILIRUBIN,TOTAL 3.4 MG/DL (0.2-1.0); CALCIUM LEVEL 7.2 MG/DL (8.8-10.2); CREATININE FOR GFR 2.53 MG/DL (0.55-1.30); GLOMERULAR FILTRATION RATE 20.6 (>45); POTASSIUM SERUM 4.3 MEQ/L (3.5-5.1); TOTAL PROTEIN 5.6 GM/DL (6.4-8.2)
[2020-09-25] MEDS ORDERED: LORazepam 2 MG TAB PO PRN (16:50)
[2020-09-25] MEDS ORDERED: NOREPINEPHRINE BITARTRATE 16 MG in D5W 484 ML IV SCH (17:00)
--- NOTE | 2020-09-25 17:15 | ECGEPIP ---
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
--- NOTE | 2020-09-25 17:58 | ROOPDOC ---
[facility] Report Of Operation Report of Operation DATE OF PROCEDURE: 09/25/20 PROCEDURE PERFORMED: Temporary trialysis catheter insertion. PREPROCEDURE DIAGNOSES: PARDEEP. POSTPROCEDURE DIAGNOSES: PARDEEP. SURGEON: Dr. Elvis MD Consent obtained from: Patient with risk and benefit explained. Patient signed. ANESTHESIA: Local 1% lidocaine 5 cc. ESTIMATED BLOOD LOSS: Approximately 5 cc mL. COMPLICATIONS: None. PROCEDURE NOTE: A time out was performed. My hands were washed immediately prior to the procedure. I wore a surgical cap, mask with protective eyewear, sterile gown and sterile gloves throughout the procedure. The left neck/IJ was attempted without success. There was venous blood draw but guidewire was not able to be advanced. Therefore, the LEFT inguinal region was prepped using chlorhexidine scrub and draped in sterile fashion using a full drape and sterile probe cover and sterile gel employed. The femoral pulse was identified. Anesthesia was achieved using 1% lidocaine. Palpating the femoral pulse throughout the procedure, the introducer needle was inserted medial to the femoral artery using ultrasound guidance, inferior to the inguinal crease and into the femoral vein. Venous blood was withdrawn. The syringe was removed and a guidewire was advanced into the introducer needle. A small incision was made at the skin surface with a scalpel and the introducer needle was exchanged for a dilator over the guidewire. After appropriate dilation was obtained, the dilator was exchanged over the wire for a temporarily trialysis venous catheter. The wire was removed and the catheter was sutured in place at 20 cm. A sterile sorbaview shield was placed over the catheter at the insertion site. The patient tolerated the procedure without any hemodynamic compromise. At time of procedure completion, all ports aspirated and flushed properly. Estimated blood loss is 5 cc. Post procedure chest x-ray showed no evidence of pneumothorax as left IJ was attempted. BAMBI BURNS MD Sep 25, 2020 17:58
[2020-09-25] MEDS: NOREPINEPHRINE BITARTRATE 8 MG in D5W 492 ML IV SCH (18:00)
--- NOTE | 2020-09-25 18:01 | REP ---
INDICATION: s/p line placement attempt. COMPARISON: Earlier today TECHNIQUE: Portable FINDINGS: The technique utilized in obtaining the radiograph has magnified the cardiac silhouette and accentuated the interstitial markings. Cardiomediastinal silhouette and lung madrigal are stable. No acute patchy parenchymal opacities or pleural effusions have developed. The tip of the MediPort device remains in the superior vena cava. The osseous structures are stable and intact IMPRESSION: There is no acute cardiopulmonary disease. <Electronically signed by Jose Jimenez > 09/25/20 1519
[2020-09-25] MEDS: THIAMINE 100 MG TAB PO SCH (18:29)
[2020-09-25] MEDS ORDERED: VANCOMYCIN HCL 1,000 MG, VIAL MATE ADAPTER 1 EACH in NS 250 ML IV ONE ×2 (19:00→22:00)
[2020-09-25] MEDS ORDERED: ISOVUE-370 76% 100ML VIAL As Ordered ONE (19:18)
--- NOTE | 2020-09-25 19:23 | IPNPDOC ---
Text Note Date of Service The patient was seen on 09/25/20. NOTE Blood cultures positive in both aerobic and anaerobic bottles from both port and peripheral veins. Growing gram positive cocci in chains. Concern for Listeria. Will add ampicillin. No urine output . Starting on CRRT. Will get CT neck, chest and abdomen with contrast for ? pneumomediastinum, septic shock VS,Fishbone, I+O VS, Fishbone, I+O Laboratory Tests 09/25/20 06:26 09/25/20 15:59 Vital Signs Date Time Temp Pulse Resp B/P (MAP) Pulse Ox O2 Delivery O2 Flow Rate FiO2 09/25/20 15:00 96 36 92/55 (67) 85 Room Air 09/25/20 11:30 98.0 09/25/20 10:46 2.0 GEORGE MOMIN MD Sep 25, 2020 19:23
[2020-09-25] MEDS ORDERED: VANCOMYCIN INTERMITTENT/PULSE DOSING BY CLINICAL PHARMACIST PER DOSING PROTOCOL XX SCH (19:45)
--- NOTE | 2020-09-25 19:53 | REPVR ---
PROCEDURE INFORMATION: Exam: CT Chest With Contrast; Diagnostic Exam date and time: 09/25/2020 7:22 PM Age: 60 years old Clinical indication: Other: Bacterimia; Additional info: Pneumomediastinum, septic shock, gi infection, TECHNIQUE: Imaging protocol: Diagnostic computed tomography of the chest with contrast. Radiation optimization: All CT scans at this facility use at least one of these dose optimization techniques: automated exposure control; mA and/or kV adjustment per patient size (includes targeted exams where dose is matched to clinical indication); or iterative reconstruction. Contrast material: ISOVUE 370; Contrast volume: 100 ml; Contrast route: INTRAVENOUS (IV); COMPARISON: [place] CT Chest without contrast 09/25/2020 8:12 AM FINDINGS: Lungs: Bibasilar ground-glass opacities likely atelectatic. No segmental or lobar infiltrates. Pleural spaces: Unremarkable. No pneumothorax. No pleural effusion. Heart: Mild cardiomegaly. Aorta: Unremarkable. No aortic aneurysm. Lymph nodes: Unremarkable. No enlarged lymph nodes. Liver: There is a diffuse decrease in hepatic parenchymal density, consistent with steatosis. There is enlargement of the left and caudate lobes of the liver as well as a lobular surface contour of the liver. Findings may indicate the presence of cirrhosis in this patient with no reported history of chronic liver disease. No focal abnormality demonstrated. Bones/joints: The spine demonstrates mild degenerative changes. Soft tissues: Unremarkable. IMPRESSION: 1. Mild cardiomegaly. 2. There is a diffuse decrease in hepatic parenchymal density, consistent with steatosis. 3. There is enlargement of the left and caudate lobes of the liver as well as a lobular surface contour of the liver. Findings may indicate the presence of cirrhosis in this patient with no reported history of chronic liver disease. No focal abnormality demonstrated. Electronically signed by: Adams Payan On 09/25/2020 19:53:15 PM
--- NOTE | 2020-09-25 20:00 | REPVR ---
PROCEDURE INFORMATION: Exam: CT Abdomen And Pelvis With Contrast Exam date and time: 09/25/2020 7:22 PM Age: 60 years old Clinical indication: Other: Bacterimia; Additional info: Pneumomediastinum, septic shock, gi infection, TECHNIQUE: Imaging protocol: Computed tomography of the abdomen and pelvis with contrast. Radiation optimization: All CT scans at this facility use at least one of these dose optimization techniques: automated exposure control; mA and/or kV adjustment per patient size (includes targeted exams where dose is matched to clinical indication); or iterative reconstruction. Contrast material: ISOVUE 370; Contrast volume: 100 ml; Contrast route: INTRAVENOUS (IV); COMPARISON: CT ABD PELVIS W/O CONTRAST 09/25/2020 8:12 AM FINDINGS: Liver: There is enlargement of the left and caudate lobes of the liver as well as a lobular surface contour of the liver. Findings may indicate the presence of cirrhosis in this patient with no reported history of chronic liver disease. No focal abnormality demonstrated. Hepatic steatosis. Gallbladder and bile ducts: There has been a cholecystectomy. Pancreas: There is diffuse pancreatic atrophy. Spleen: There is uots-zi-yhnrpsxk splenomegaly with a maximum span of 15 centimeters. No focal abnormalities demonstrated. Adrenal glands: Normal. No mass. Kidneys and ureters: Normal. No hydronephrosis. Stomach and bowel: Gas collection on the anterior margin of the gastric antrum associated with regional thinning of the gastric wall. Findings may represent an ulcer crater to be correlated clinically. Duodenal diverticulum. Mild diverticulosis is present in the distal colon. No diverticulitis. Appendix: No evidence of appendicitis. Intraperitoneal space: Ovoid calcification in the anterior mesentery/omentum in the left lower quadrant measuring 1.8 x 2.6 cm may represent the sequelae of a prior omental infarct. Vasculature: The aortoiliac vessels demonstrate mild atherosclerotic calcification. The aortoiliac vessels demonstrate mild atherosclerotic calcification. Lymph nodes: Unremarkable. No enlarged lymph nodes. Urinary bladder: Jaramillo catheter within a collapsed urinary bladder. Reproductive: Unremarkable as visualized. Bones/joints: The spine demonstrates mild degenerative changes. Mild central spinal stenosis L1-L2, moderate central spinal stenosis L3-L4, severe central spinal stenosis L4-L5. Bulging annulus and disc space narrowing L5-S1. Soft tissues: See "Stomach and bowel" finding. IMPRESSION: 1. There is enlargement of the left and caudate lobes of the liver as well as a lobular surface contour of the liver. Findings may indicate the presence of cirrhosis in this patient with no reported history of chronic liver disease. No focal abnormality demonstrated. Hepatic steatosis. 2. There is hqeq-iz-exvjminc splenomegaly with a maximum span of 15 centimeters. No focal abnormalities demonstrated. 3. There is diffuse pancreatic atrophy. 4. There has been a cholecystectomy. 5. Gas collection on the anterior margin of the gastric antrum associated with regional thinning of the gastric wall. Findings may represent an ulcer crater to be correlated clinically. 6. 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 7. Mild diverticulosis is present in the distal colon. No diverticulitis. Electronically signed by: Adams Payan On 09/25/2020 20:00:04 PM
--- NOTE | 2020-09-25 20:16 | REPVR ---
PROCEDURE INFORMATION: Exam: CT Neck With Contrast Exam date and time: 09/25/2020 7:22 PM Age: 60 years old Clinical indication: Other: Bacterimia; Additional info: ? Pneumo mediastinum , bacterimia, gi infection TECHNIQUE: Imaging protocol: Computed tomography images of the neck with contrast. Radiation optimization: All CT scans at this facility use at least one of these dose optimization techniques: automated exposure control; mA and/or kV adjustment per patient size (includes targeted exams where dose is matched to clinical indication); or iterative reconstruction. Contrast material: ISOVUE 370; Contrast volume: 100 ml; Contrast route: INTRAVENOUS (IV); COMPARISON: CT Chest without contrast 09/25/2020 8:12 AM FINDINGS: Paranasal sinuses: Right frontal sinus and to a lesser degree ethmoid sinus mucosal thickening. Nasopharynx: Unremarkable. Oropharynx: Unremarkable. No significant tonsillar enlargement. Hypopharynx: Unremarkable. Larynx: Unremarkable. Normal epiglottis. Retropharyngeal space: Unremarkable. Submandibular/Parotid glands: Slightly enlarged left submandibular gland with thickening of adjacent fascial planes and slight surrounding induration consistent with sialoadenitis of the left submandibular gland. Thyroid: Absent right thyroid lobe with coarse calcifications in the left thyroid. Lymph nodes: Unremarkable. No lymphadenopathy. Trachea: Visualized trachea is unremarkable. Lungs: Unremarkable as visualized. Bones/joints: Unremarkable. No acute fracture. Vasculature: Right Port-A-Cath through the internal jugular system with the tip in the superior vena cava. Soft tissues: Unremarkable. No significant soft tissue swelling. IMPRESSION: 1. Mild sialadenitis of the left submandibular gland. No calculus is noted along the course of the duct. 2. Absent right thyroid. 3. Right Port-A-Cath extending to the superior vena cava. 4. Right frontal and to a lesser degree ethmoid sinus disease. Electronically signed by: Reji Garcia On 09/25/2020 20:16:08 PM
[2020-09-25] MEDS: AMPICILLIN SOD 2 GM in D5W MINI-BAG PLUS 100 ML IV SCH (21:00)
[2020-09-26] VITALS (89 sets, daily range): BP systolic 66–163; BP diastolic 31–95
[2020-09-26] MEDS: CEFEPIME HCL 2 GM in D5W MINI-BAG PLUS 50 ML IV SCH ×2 (00:12→07:43)
--- NOTE | 2020-09-26 01:34 | IPNPDOC ---
Text Note Date of Service The patient was seen on 09/26/20. NOTE TIME OF SERVICE Per d/w the patient's RN the patient suddenly developed confusion and slurred speech which is new Vitals HR 130s/ RR 49 / SBP 135s on levophed / gluc 126.1 / T 96.8 PE: alert and oriented only to person / speech is slightly dysarthric #Encephalopathy likely metabolic due to infection / but need to r/o infarction Plan: f/u CT of the head #Ulcer on dorsal surface of right foot Plan: f/u ESR, CRP, and foot xray to r/o osteomyelitis VS,Fishbone, I+O VS, Fishbone, I+O Laboratory Tests 09/25/20 06:26 09/25/20 15:59 Vital Signs Date Time Temp Pulse Resp B/P (MAP) Pulse Ox O2 Delivery O2 Flow Rate FiO2 09/26/20 00:30 121 99/49 (66) 99 Room Air 09/26/20 00:00 97.0 36 09/25/20 10:46 2.0 I&O- Last 24 Hours up to 6 AM 09/26/20 06:00 Intake Total 7514.1 ml Output Total 338 ml Balance 7176.1 ml MARTINA QUESADA MD Sep 26, 2020 01:34
--- NOTE | 2020-09-26 02:19 | REPVR ---
PROCEDURE INFORMATION: Exam: CT Head Without Contrast Exam date and time: 09/26/2020 1:34 AM Age: 60 years old Clinical indication: Altered mental status/memory loss; Confusion or disorientation; Additional info: Slurred speech and confusion /r/o CVA TECHNIQUE: Imaging protocol: Computed tomography of the head without contrast. Radiation optimization: All CT scans at this facility use at least one of these dose optimization techniques: automated exposure control; mA and/or kV adjustment per patient size (includes targeted exams where dose is matched to clinical indication); or iterative reconstruction. COMPARISON: Thyroid, ST head+neck US 09/15/2017 3:01 PM FINDINGS: Brain: Normal. No hemorrhage. Unremarkable white matter. No mass effect. Cerebral ventricles: There is slight prominence of the central ventricular system. Paranasal sinuses: Visualized sinuses are unremarkable. No fluid levels. Mastoid air cells: Visualized mastoid air cells are well aerated. Bones/joints: Unremarkable. No acute fracture. Soft tissues: Unremarkable. IMPRESSION: 1. Minimal atrophy. 2. Otherwise negative noncontrast head CT. Electronically signed by: Reji Garcia On 09/26/2020 02:19:03 AM
--- NOTE | 2020-09-26 02:22 | REPVR ---
PROCEDURE INFORMATION: Exam: XR Right Foot Exam date and time: 09/26/2020 2:12 AM Age: 60 years old Clinical indication: Pain; Right; Patient HX: Ulcer on ball of foot; Additional info: Right foot ulcer R/O osteomyelitis TECHNIQUE: Imaging protocol: XR Right foot. Views: 3 or more views. COMPARISON: US Duplex, Ext LOWER veins, bilat 09/25/2020 3:39 PM FINDINGS: Bones/joints: Old fracture of the 5th metatarsal. Mild inferior calcaneal spurring. Soft tissues: Soft tissue swelling with ulceration at the plantar aspect of the distal foot. IMPRESSION: 1. Soft tissue swelling with plantar ulcer at the distal aspect of the foot. 2. Residua of old 5th metatarsal fracture. 3. Otherwise negative right foot with no osseous erosion. Electronically signed by: Reji Garcia On 09/26/2020 02:21:34 AM
[2020-09-26] MEDS: AMPICILLIN SOD 2 GM in D5W MINI-BAG PLUS 100 ML IV SCH ×2 (03:41→11:09)
[2020-09-26] MEDS ORDERED: LR 1,000 ML IV SCH (04:10)
[2020-09-26 04:32] LABS: HEMATOCRIT 35.3 % (36.0-47.0); HEMOGLOBIN 11.3 g/dl (12.0-15.5); MEAN CORPUSCULAR HEMOGLOBIN 34.6 pg (27.0-33.0); RED BLOOD COUNT 3.27 10^6/uL (4.00-5.40); WHITE BLOOD COUNT 7.5 10^3/uL (4.0-10.0)
[2020-09-26 04:39] LABS: ABG BASE EXCESS -16.9 (-2.0-2.0); ABG HCO3 9.9 MEQ/L (22.0-26.0); ABG O2 SATURATION 96.7 % (95.0-99.0); ABG PARTIAL PRESSURE O2 98.7 mmHg (75.0-100.0); ABG STANDARD HCO3 11.8 MEQ/L (22.0-26.0); ABG TOTAL CO2 10.7 MEQ/L (23.0-31.0)
[2020-09-26 04:43] LABS: ABG pH (ARTERIAL) 7.183 UNITS (7.350-7.450)
[2020-09-26] MEDS ORDERED: ACETAMINOPHEN 650 MG SUPP PR PRN (04:50)
[2020-09-26 04:51] LABS: PLATELET COUNT, AUTOMATED 38 10^3/uL (150-450)
[2020-09-26 04:59] LABS: BLOOD UREA NITROGEN 41 MG/DL (7-18); CALCIUM LEVEL 6.5 MG/DL (8.8-10.2); CARBON DIOXIDE LEVEL 13 MEQ/L (21-32); CHLORIDE LEVEL 102 MEQ/L (98-107); CREATININE FOR GFR 2.78 MG/DL (0.55-1.30); GLOMERULAR FILTRATION RATE 18.4 (>45); GLUCOSE, FASTING 140 MG/DL (70-100); MAGNESIUM LEVEL 1.4 MG/DL (1.8-2.4); PHOSPHORUS LEVEL 6.2 MG/DL (2.5-4.9); POTASSIUM SERUM 4.8 MEQ/L (3.5-5.1); SODIUM LEVEL 134 MEQ/L (136-145)
--- NOTE | 2020-09-26 05:20 | REPVR ---
PROCEDURE INFORMATION: Exam: XR Chest Exam date and time: 09/26/2020 5:10 AM Age: 60 years old Clinical indication: Dyspnea TECHNIQUE: Imaging protocol: XR of the chest. Views: 1 view. COMPARISON: CT Chest with contrast 09/25/2020 7:21 PM FINDINGS: Tubes, catheters and devices: Right internal jugular Port-A-Cath extending to the distal superior vena cava. Lungs: There is decreased inflation of the lungs. No focal infiltrates. Pleural spaces: Unremarkable. No pleural effusion. No pneumothorax. Heart/Mediastinum: Unremarkable. No cardiomegaly. Bones/joints: Unremarkable. Soft tissues: There are generous overlying soft tissues. IMPRESSION: 1. Right Port-A-Cath to the distal superior vena cava. 2. Otherwise negative poor inspiratory chest. Electronically signed by: Reji Garcia On 09/26/2020 05:19:53 AM
--- NOTE | 2020-09-26 07:22 | CR ---
CONSULTATION DATE: 09/25/2020 REQUESTING PHYSICIAN: Concepcion Leone MD REASON FOR CONSULTATION: Anuric renal failure with lactic acidosis. HISTORY OF PRESENT ILLNESS: Miss Elsa Terry is previously unknown to me. She is a 60-year-old female with a past medical history of hemochromatosis (cirrhosis of liver as per imaging), atrial fibrillation, hypertension, GERD, noninsulin dependent diabetes mellitus, pulmonary nodules and other comorbid conditions mentioned below. Patient has a baseline creatinine of less than 1. She had recent labs done on August 31 [facility] creatinine of 0.8 at that time. She presented to the emergency room today with complaint of recurrent watery diarrhea that started on Friday evening. The patient denies seeing any blood in the stool. She said she was having multiple episodes of vomiting and dry heaving and she did develop shoulder pain with all the vomiting and dry heaving. On Friday, she took four tablets of Motrin in the afternoon and another four tablets of Motrin in the evening. On Friday she reports she passed only a little bit of urine and continued to have multiple episodes of watery diarrhea. She ended up having stool incontinence and soiled her bed and she subsequently presented to the emergency room. In the emergency room, the patient was found to be in septic shock with blood pressure of 73/46, acidotic with a lactic acid of 11.7 and bandemia (32% bands. She was also in acute kidney injury with creatinine of 2.1. The patient was given three liters of normal saline. However, she did not pass any urine. A Jaramillo catheter was also placed and obstruction was ruled out on the basis of imaging as well. A nephrology evaluation was requested for help in the management of her acute anuric renal failure. The patient is seen and examined this afternoon at 4 p.m. at the bedside in the intensive care unit. Nursing staff reports patient has not made any urine and I discussed with the patient at the bedside regarding need for dialysis for stabilization and she is agreeable. Risks, benefits and alternatives were discussed. PAST MEDICAL HISTORY: 1. Baseline creatinine less than 1. 2. Hereditary hemochromatosis with as needed phlebotomy. 3. Cirrhosis of liver. 4. Pulmonary nodules. 5. Left thyroid cyst. 6. Malabsorption syndrome secondary to H2 blockade. 7. Hypertension. 8. GERD. 9. Noninsulin dependent diabetes mellitus. 10. Atrial fibrillation. 11. Obesity. PAST SURGICAL HISTORY: 1. Tonsillectomy. 2. Cholecystectomy. 3. Appendectomy. 4. . 5. D&C. 6. Left knee surgery. 7. Carpal tunnel surgery. 8. Hysterectomy. 9. Thyroid surgery. 10. Chemoport insertion. FAMILY HISTORY: Hemochromatosis. ALLERGIES: AMPICILLIN, OFLOXACIN. SOCIAL HISTORY: She is an ex-smoker. She does drink daily alcohol. There is no reported drug use. HOME MEDICATIONS: 1. Aspirin 81 mg p.o. q.h.s. 2. Trulicity 1.5 mg subcu once a week. 3. Pepcid 20 mg p.o. daily. 4. Glimepiride 4 mg p.o. daily. 5. Lisinopril 10 mg p.o. daily. 6. Loratadine 10 mg p.o. daily. 7. Magnesium chloride two tabs p.o. q.h.s. 8. Metformin 850 mg p.o. b.i.d. 9. Metoprolol l00 mg p.o. twice daily. 10. Venlafaxine 150 mg p.o. daily. REVIEW OF SYSTEMS: She reports weakness, fatigue and low grade fever. Eyes: She denies visual changes or tearing. ENT: She denies epistaxis or rhinorrhea. Cardiac: She reports lightheadedness. She denies chest pain or palpitations. Pulmonary: She reports shortness of breath. She denies cough or hemoptysis. Gastrointestinal: She reports nausea, vomiting and diarrhea. Genitourinary: She reports decreased urine output. Hematologic: She reports hemochromatosis and occasional phlebotomy. Musculoskeletal: She reports upper back and shoulder pain. She denies leg swelling. Neurologic: She denies seizure or syncope. Psychiatric: She reports alcohol dependence. Skin: She denies any lesions or breakdowns. She reports a Chemoport. Endocrine: She reports diabetes mellitus and history of thyroid cyst. Remainder of review of systems is negative or as per HPI. PHYSICAL EXAMINATION: Vital signs: Temperature 97.9, pulse 102, respiratory rate 36, blood pressure 100/57, saturating 95% on room air. Intake was 5.2 liters. Urine output is 0. There are four bowel movements that were incontinent. General: Patient is seen awake, alert, oriented and sitting up in the ICU with the head of the bed elevated. Obese female in mild distress. HEENT: Extraocular muscles are intact. Neck: Supple. Jugular veins were not elevated while she was sitting upright. There is a Chemoport in the right chest wall. Heart: Heart sounds were regular, S1, S2. There was no peripheral edema. Lungs: Showed diminished breath sounds bilaterally with tachypnea and shallow respirations but no crackle or rale. Abdomen: Obese, soft and nontender. Genitourinary: Shows Jaramillo catheter with just a few mL of urine in the tubing. Skin: Warm and dry. Neurologic: She is oriented x3. She is a fair historian. She answers questions appropriately. She cooperates with physical exam. LABORATORY DATA: Sodium 137, potassium 4.3, bicarbonate 15, BUN 36, creatinine 2.5, anion gap of 16, glucose 117, lactic acid 8.9, repeat lactic acid 9.8. AST 224, ALT 89, albumin 2.8. Hemoglobin 13.3, white count 3.1, bandemia 32%, INR 1.6, D-dimer greater than 4000. Platelets 55. Blood cultures returned back with gram positive cocci in chains drawn both peripherally and from the port. Her GI PCR was positive for enteropathogenic E. coli. CT, abdomen and pelvis done this morning, noncontrast shows Jaramillo catheter in collapsed bladder and unremarkable kidneys. IV contrast CT scans of the abdomen, pelvis, chest and neck are all reviewed as well, done this evening at around 6:40 p.m. Notably, her chest imaging was negative for pleural effusion. There was, however, bibasilar ground glass opacities. There were no lobar infiltrates. INPATIENT MEDICATIONS: 1. Tylenol 1 gm IV x1. 2. Ampicillin 2 gm IV q.6 hourly. 3. Cefepime 2 gm IV q.12 hourly. 4. Levophed presently running at 10 mcg. 5. She received 3.6 liters of normal saline. 6. She has been on sodium bicarbonate at 125 mL per hour. 7. She received one dose of vancomycin 1 gm IV x1. 8. Fentanyl 25 mcg IV x1. 9. Midodrine 5 mg p.o. three times a day. 10. Zofran p.r.n. 11. Protonix 40 mg IV daily. 12. Promethazine 12.5 mg IV q.6 hourly p.r.n. 13. Thiamine 100 mg p.o. b.i.d. PROBLEMS: 1. Acute anuric renal failure. It is secondary to severe sepsis with abdominal infection and bacteremia. Patient did not make any urine despite receiving 5 liters or more of IV fluid. She did take eight tablets of Motrin over the weekend. She is going to need CRRT initiation for stabilization. I have discussed with ____ regarding getting a dialysis catheter and orders are written for CRRT. I will not remove fluids overnight as the patient is saturating well on room air and is still having ongoing watery diarrhea. I will, however, decrease the rate of IV fluid now to only 40 mL an hour because I am concerned about volume overload given aggressive IV fluid and anuric renal failure. We will keep a close eye on her from a fluid status. She has received IV contrast today urgently because there was concern of pneumomediastinum and bacteremia. Dialysis will help remove the contrast but I do not expect her to have renal recovery on a rapid basis. 2. Septic shock. Patient is requiring Levophed infusion. Her GI PCR was positive for enteropathogenic E. coli and she is growing gram positive cocci in the blood. She is on broad spectrum antibiotics managed by the primary team, receiving cefepime, vancomycin and ampicillin. There is significant bandemia and ski maker wood is managing as well. I am not going to remove fluid with CRRT tonight given her severe sepsis. We will keep an eye on her fluid status. 3. Anion gap metabolic acidosis secondary to significant lactic acidosis in the setting of prolonged hypotension and severe sepsis. She is on Levophed. She is requiring 10 mcg at this time. AUTOMOTIVE WORK[employer] will help address her anion gap metabolic acidosis. Her latest lactic level is 9.8. I am stopping sodium bicarbonate containing fluids now that she has been started on CRRT. We will get repeat labs on a q.8 hourly basis to keep an eye on her electrolytes including her bicarbonate levels. 4. Thrombocytopenia, platelet count of 55. INR is also mildly high at 1.6. D-dimer is also significantly elevated. She is receiving heparin-free CRRT. 5. Noninsulin dependent diabetes mellitus. She is not suitable for metformin. Her oral hypoglycemics have been held. She does not have any dextrose in her IV fluids. Her glucose levels are thus far okay. 6. History of paroxysmal atrial fibrillation. Beta nathanael is held in the setting of severe sepsis and hypotension. 7. Thank you for involving me in the care of Miss Terry. I will be happy to follow her along with you.
[2020-09-26] MEDS: MIDODRINE 5 MG TAB PO SCH ×3 (07:44→16:00)
[2020-09-26] MEDS ORDERED: MAG SULF 1GM/100ML (MAG RUN) 1 GM in IV 1 EA IV ONE (08:00)
[2020-09-26] MEDS: NOREPINEPHRINE BITARTRATE 8 MG in D5W 492 ML IV SCH ×3 (08:29→22:33)
--- NOTE | 2020-09-26 08:48 | REP ---
INDICATION: POST LINE PLACEMENT. COMPARISON: Multiple the latest 09/26/2020 at 4:56 a.m. TECHNIQUE: Portable FINDINGS: The technique utilized in obtaining the radiograph has magnified the cardiac silhouette and accentuated the interstitial markings. The cardiomediastinal silhouette and lung madrigal are unchanged. Since the last examination a right-sided internal jugular central venous catheter has been placed the tip of which is in the superior vena cava. There is no change in the osseous structures. IMPRESSION: Central venous catheter placement as described above. Otherwise no significant change. <Electronically signed by Jose Jimenez > 09/26/20 [id number]
[2020-09-26] MEDS ORDERED: diazePAM 10MG/2ML SYRINGE (J3360 PER 5MG) IM ONE (08:50)
[2020-09-26] MEDS ORDERED: diazePAM 10MG/2ML SYRINGE (J3360 PER 5MG) IV ONE (08:50)
[2020-09-26] MEDS: FOLIC ACID 1 MG TAB PO SCH (09:00)
[2020-09-26] MEDS: THIAMINE 100 MG TAB PO SCH ×2 (09:00→21:00)
[2020-09-26] MEDS ORDERED: MULTIVITAMINS/MINERALS THERAP 1 TAB PO SCH (09:00)
[2020-09-26] MEDS: LORazepam 2 MG/ML VIAL IV PRN ×2 (09:05→11:01)
--- NOTE | 2020-09-26 10:42 | ROOPDOC ---
[facility] Report Of Operation Report of Operation DATE OF PROCEDURE: 09/26/20 PROCEDURE PERFORMED: Temporary double-lumen dialysis catheter insertion. PREPROCEDURE DIAGNOSES: Anuric PARDEEP. POSTPROCEDURE DIAGNOSES: Anuric PARDEEP. SURGEON: Dr. Elvis MD Consent obtained from: Patient with benefit and risks explained. ANESTHESIA: Local lidocaine with 1% 3 cc. ESTIMATED BLOOD LOSS: Approximately 3 mL. COMPLICATIONS: None. PROCEDURE NOTE: After procedure consent was obtained, patient was put in Trendelenburg position. The right neck region was cleaned with chlorhexidine and draped in sterile fashion. Sterile gown, gloves, face mask, hat were used for the procedure. The right neck area was anesthetized with 1% lidocaine. The right internal jugular vein was visualized under ultrasound guidance. The right IJ was cannulated with introducer needle and guidewire was passed through the introducer needle. The area was dilated and double-lumen 13 Sammarinese dialysis catheter was passed through the guidewire. The entire procedure was done sterilely using Seldinger technique. Both ports were flushed with normal saline and capped. Patient tolerated the procedure well without any complication. Estimated blood loss was 3 cc. Post procedure chest x-ray show good position of the dialysis catheter with no evidence of pneumothorax. BAMBI BURNS MD Sep 26, 2020 10:42
[2020-09-26 10:59] LABS: APPEARANCE, URINE TURBID (CLEAR); BACTERIA, URINE AUTO NEGATIVE (NEGATIVE); BILIRUBIN, URINE AUTO NEGATIVE (NEGATIVE); BLOOD, URINE BLOOD 3+ (NEGATIVE); COLOR, URINE AMBER (YELLOW); GLUCOSE, URINE (UA) AUTO 1+ mg/dL (NEGATIVE); KETONE, URINE AUTO NEGATIVE (NEGATIVE); LEUKOCYTE ESTERASE, URINE AUTO TRACE (NEGATIVE); NITRITE, URINE AUTO NEGATIVE (NEGATIVE); PROTEIN, URINE AUTO 3+ mg/dL (NEGATIVE); RBC, URINE AUTO 166 /HPF (0-3); SPECIFIC GRAVITY URINE AUTO 1.035 (1.002-1.035); SQUAMOUS EPITHELIAL CELL UR AU 5 /HPF (0-6); UROBILINOGEN, URINE AUTO 0.2 mg/dL (0.0-2.0); WBC, URINE AUTO 3 /HPF (0-3)
[2020-09-26] MEDS ORDERED: ETOMIDATE INJ 20MG/10ML VIAL As Ordered ONE (11:15)
[2020-09-26] MEDS ORDERED: SUCCINYLCHOLINE INJ 200 MG/10 ML VIAL (J0330) As Ordered ONE (11:16)
[2020-09-26] MEDS ORDERED: MIDAZOLAM INJ 2MG/2ML VIAL (J2250 PER 1MG) As Ordered ONE (11:17)
[2020-09-26] MEDS ORDERED: ROCURONIUM BROMIDE 50 MG/5 ML VIAL As Ordered ONE (11:22)
[2020-09-26] MEDS: PANTOPRAZOLE 40MG VIAL (C9113 PER 1) IV SCH (12:06)
--- NOTE | 2020-09-26 12:10 | REP ---
INDICATION: S/P intubation. COMPARISON: 09/26/2020 8:41 a.m. TECHNIQUE: Single portable AP view of the chest was performed. FINDINGS: An endotracheal tube is present, the tip is approximately 2.8 cm above the priyank. A nasogastric tube is seen traversing into the stomach. Right central venous catheters are again noted unchanged. The heart and mediastinum are unchanged. The lungs are unchanged in appearance. IMPRESSION: Endotracheal tube tip 2.8 cm above the priyank. Nasogastric tube traverses into the stomach. Otherwise stable. <Electronically signed by Keshav Marshall > 09/26/20 [id number]
[2020-09-26 12:49] LABS: ABG BASE EXCESS -12.1 (-2.0-2.0); ABG HCO3 14.2 MEQ/L (22.0-26.0); ABG O2 SATURATION 98.7 % (95.0-99.0); ABG PARTIAL PRESSURE CO2 33.4 mmHg (35.0-45.0); ABG PARTIAL PRESSURE O2 129.1 mmHg (75.0-100.0); ABG TOTAL CO2 15.2 MEQ/L (23.0-31.0)
[2020-09-26 12:50] LABS: HEMATOCRIT 33.2 % (36.0-47.0); HEMOGLOBIN 10.7 g/dl (12.0-15.5); MEAN CORPUSCULAR HEMOGLOBIN 34.4 pg (27.0-33.0); MEAN CORPUSCULAR HGB CONC 32.2 g/dl (32.0-36.5); MEAN CORPUSCULAR VOLUME 106.8 fl (80.0-96.0); RED BLOOD COUNT 3.11 10^6/uL (4.00-5.40); WHITE BLOOD COUNT 9.3 10^3/uL (4.0-10.0)
[2020-09-26 12:50] LABS: ABG pH (ARTERIAL) 7.245 UNITS (7.350-7.450)
[2020-09-26 12:52] LABS: PLATELET COUNT, AUTOMATED 38 10^3/uL (150-450)
[2020-09-26] MEDS ORDERED: ROCURONIUM BROMIDE 50 MG/5 ML VIAL IV SCH (13:10)
[2020-09-26] MEDS ORDERED: MIDAZOLAM INJ 2MG/2ML VIAL (J2250 PER 1MG) IV STA (13:10)
[2020-09-26] MEDS ORDERED: ETOMIDATE INJ 20MG/10ML VIAL IV STA (13:10)
[2020-09-26] MEDS: cefTRIAXone SOD 2 GM in D5W MINI-BAG PLUS 50 ML IV SCH (13:59)
[2020-09-26] MEDS: CALCIUM GLUCONATE 1,000 MG in D5W MINI-BAG PLUS 100 ML IV SCH ×2 (14:07→15:43)
[2020-09-26 14:15] LABS: CALCIUM LEVEL 6.3 MG/DL (8.8-10.2); CREATININE FOR GFR 2.62 MG/DL (0.55-1.30); GLOMERULAR FILTRATION RATE 19.7 (>45); MAGNESIUM LEVEL 1.9 MG/DL (1.8-2.4); PHOSPHORUS LEVEL 4.8 MG/DL (2.5-4.9); POTASSIUM SERUM 4.8 MEQ/L (3.5-5.1)
--- NOTE | 2020-09-26 14:27 | ROOPDOC ---
[facility] Report Of Operation Report of Operation DATE OF PROCEDURE: 09/26/20 PROCEDURE PERFORMED: Endotracheal intubation. PREPROCEDURE DIAGNOSES: Acute respiratory failure. POSTPROCEDURE DIAGNOSES: Acute respiratory failure. SURGEON: Dr. Elvis MD Urgent procedure Induction medications: 2 mg of Versed, 30 mg of etomidate, 50 mg of rocuronium. Attempt: 1, rapid sequence intubation Preoxygenation: Bag mask ventilation Technique: The direct laryngoscope MAC 4.0 blade Vocal cord view: Grade 1 view. Endotracheal tube site: 7.5 Endotracheal tube taped at: 21 cm Confirmations of endotracheal intubation: Bilateral breath sounds, absence of breath sounds in the stomach, end-tidal CO2 detector, endotracheal tube co ndensation BAMBI BURNS MD Sep 26, 2020 14:27
--- NOTE | 2020-09-26 14:42 | CR.PDOC ---
General Date of Consultation: Sep 26, 2020 Referring Provider: Concepcion Leone MD Primary Care Physician: SARAH CRAMER MD Attending Physician: BAMBI BURNS MD Consultation REASON FOR CONSULTATION/CHIEF COMPLAINT: Abdominal pain, nausea, vomiting. HISTORY OF PRESENT ILLNESS: This is a 60-year-old female with past medical history of territory hemochromatosis, suspected cirrhosis from hemochromatosis, frequent phlebotomy every 4 months, pulmonary nodule, hypertension, diabetes, GERD, atrial fibrillation who presented to the hospital on September 25, 2020 with nausea vomiting and diarrhea. No history was able to be obtained from patient as patient is currently intubated and sedated. However, based on chart review, patient had several episodes of nausea, vomiting, abdominal pain and diarrhea. Upon admission to the hospital patient was found to be hypotensive with anuric PARDEEP. She was also in severe lactic acidosis. She was admitted and started on vasopressor support and nephrology was consulted to start CRRT. Upon admission to the hospital, patient stool culture came back positive for enteropathogenic E. coli. Blood culture initially showed gram-positive cocci in chains which later identified as group C and group G Streptococcus. Patient initially received a dose of vancomycin, cefepime, ampicillin, and azithromycin. Laboratory was remarkable for significant leukocytosis with bands. Patient has a right sided port. CT scan of the head, neck, chest, abdomen show no evidence of acute pathology. I was consulted for further recommendation as patient is currently in multiorgan failure. HOME MEDICATIONS: Please see below. PAST MEDICAL HISTORY: Hereditary hemochromatosis, heterozygote [id number], on as-needed phlebotomy, on average q. 4 months now with some symptoms of low iron stores with fatigue and pagophagia Cirrhosis of liver Pulmonary nodules followed since 04/2017, subcentimeter. Left thyroid cyst followed expectantly under PCP. Malabsorption syndrome secondary to H2 blockade Hypertension GERD Diabetes Atrial Fibrillation Morbid Obesity BMI 39.2 PAST SURGICAL HISTORY: tonsillectomy cholecystectomy appendectomy C-sections and D& C left knee surgery Carpal tunnel surgery Hysterectomy Thyroid surgery Chemo port insertion. FAMILY HISTORY: Father is a carrier and cousin has hemochromatosis. SOCIAL HISTORY: * Smoker: former Smoker Alcohol: heavy (Daily drinker as per son. Last drink on 09/22/20) REVIEW OF SYSTEMS: Review of system cannot be obtained as patient is currently intubated and sedated. PHYSICAL EXAMINATION: VITAL SIGNS: Please see below. GENERAL APPEARANCE: Diaphoretic and in acute distress. Currently somewhat sedated and intubated. HEENT: No evidence of cervical adenopathy. RESPIRATORY: Lungs are clear to auscultation bilaterally with no evidence of crackle, wheezing, rhonchi. CARDIOVASCULAR: Regular rate rhythm with no evidence of murmur. ABDOMEN: Soft nontender with no evidence of Wilson sign. EXTREMITIES: +1 pitting edema of all 4 extremities, cyanotic digits and toes. NEUROLOGICAL: Gross neurological examination is intact. PSYCHIATRIC: Could not be assessed SKIN: Significant mottling of the legs. LABORATORY DATA: Please see below. ASSESSMENT/PLAN: This is a 60-year-old female with past medical history of territory hemochromatosis, suspected cirrhosis from hemochromatosis, frequent phlebotomy every 4 months, pulmonary nodule, hypertension, diabetes, GERD, atrial fibrillation who presented to the hospital on September 25, 2020 with nausea vomiting and diarrhea. 1. Septic shock secondary to bacteremia. -Patient has history of hemochromatosis. Therefore she is very vulnerable to contract enteric organism. Blood cultures growing group C and group G Streptococcus. She received a dose of vancomycin, cefepime, ampicillin, azithromycin. ID was consulted. Recommendation to continue with ceftriaxone. -Levophed for vasopressor support. Target MAP of 65 mmHg. 2. Acute respiratory failure. -Secondary to respiratory fatigue due to over compensation of underlying metabolic acidosis. Patient is currently intubated. Ventilator setting set to high minute ventilation as patient is in severe metabolic acidosis. 3. PARDEEP -Prerenal and intrinsic ATN. Patient was using NSAID prior to being admitted. She is currently on CRRT with no ultrafiltration. 4. Metabolic encephalopathy -Secondary to septic shock and respiratory failure. Will perform daily sedation holiday. She has history of heavy alcohol abuse in the past. Will monitor for CIWA. 5. Metabolic acidosis secondary to lactic acidosis -Management as #3. 6. History is no hemochromatosis -She gets frequent phlebotomy every 4 months. 7. History is a liver cirrhosis -compensated 8. Thrombocytopenia -Likely secondary to liver cirrhosis as well as underlying septic shock. 9. History is of suspected cirrhosis. -This was reported on radiographic imaging. She never had a biopsy of the liver. DVT prophylaxis: Mechanical prophylaxis as patient is thrombocytopenic. GI prophylaxis: Protonix Diet NPO. Prognosis: Patient is extremely critical with multiorgan failure. She does carry a mortality rate of 20 to 25% at this time. Family was updated regarding her critical condition. Currently they would like to pursue all medical therapy including CPR, defibrillation, trials of intubation. Vital Signs/I&O Vital Signs Date Time Temp Pulse Resp B/P (MAP) Pulse Ox O2 Delivery O2 Flow Rate FiO2 09/26/20 12:15 120 93/45 (61) 93 Ventilator 40 09/26/20 12:01 97.0 09/26/20 11:31 32 09/26/20 11:16 3.0 I&O- Last 24 Hours up to 6 AM 09/26/20 06:00 Intake Total 8008.1 ml Output Total 378 ml Balance 7630.1 ml Laboratory Data Labs 24H Laboratory Tests 2 09/25/20 15:59: Anion Gap 16, Glomerular Filtration Rate 20.6L, Lactic Acid Level 8.9*H, Calcium Level 7.2L, Total Bilirubin 3.4H, Aspartate Amino Transf (AST/SGOT) 224H, Alanine Aminotransferase (ALT/SGPT) 89H, Alkaline Phosphatase 65, Total Protein 5.6L, Albumin 2.8L, Albumin/Globulin Ratio 1.0L 09/25/20 20:21: Lactic Acid Followup at 4 Hours 9.8*H 09/25/20 22:16: Lactic Acid Level 8.6*H 09/26/20 00:27: Bedside Glucose (Misc Panel) 100 09/26/20 01:24: Bedside Glucose (Misc Panel) 104 09/26/20 01:50: C-Reactive Protein, Quantitative 24.30H 09/26/20 01:51: Erythrocyte Sedimentation Rate 26, Lactic Acid Level 10.8*H 09/26/20 04:09: Blood Gas Bicarbonate Standard 11.8L, Arterial Blood pH 7.183*L, Arterial Blood Partial Pressure CO2 27.0L, Arterial Blood Partial Pressure O2 98.7, Arterial Blood Total CO2 10.7L, Arterial Blood HCO3 9.9L, Arterial Blood Base Excess - 16.9L, Arterial Blood Oxygen Saturation 96.7 09/26/20 04:22: Nucleated Red Blood Cells % (auto) 0.3H, Anion Gap 19H, Glomerular Filtration Rate 18.4L, Calcium Level 6.5L, Whole Blood Ionized Calcium 3.6L, Phosphorus Level 6.2H, Magnesium Level 1.4L 09/26/20 04:39: Lactic Acid Level 10.8*H 09/26/20 07:24: Lactic Acid Level 9.6*H 09/26/20 10:39: Urine Color GEOFF, Urine Appearance TURBIDH, Urine pH 5.0, Urine Specific [place] 1.035, Urine Protein 3+H, Urine Glucose (Auto)(UA) 1+H, Urine Ketones (Auto) NEGATIVE, Urine Blood 3+H, Urine Nitrite NEGATIVE, Urine Bilirubin NEGATIVE, Urine Urobilinogen 0.2, Urine Leukocyte Esterase (Auto) TRACEH, Urine WBC (Auto) 3, Urine RBC (Auto) 166H, Urine Hyaline Casts (Auto) 0, Urine Bacteria (Auto) NEGATIVE, Urine Squamous Epithelial Cells 5, Urine Sperm (Auto) 09/26/20 12:26: Nucleated Red Blood Cells % (auto) 0.2H, Immature Platelet Fraction 10.5H, Anion Gap 16, Glomerular Filtration Rate 19.7L, Lactic Acid Followup at 4 Hours 7.9*H, Calcium Level 6.3L, Whole Blood Ionized Calcium 3.5*L, Phosphorus Level 4.8#, Magnesium Level 1.9 09/26/20 12:42: Blood Gas Bicarbonate Standard 15.0L, Arterial Blood pH 7.245*L, Arterial Blood Partial Pressure CO2 33.4L, Arterial Blood Partial Pressure O2 129.1H, Arterial Blood Total CO2 15.2L, Arterial Blood HCO3 14.2L, Arterial Blood Base Excess - 12.1L, Arterial Blood Oxygen Saturation 98.7 CBC/BMP Laboratory Tests 09/25/20 15:59 09/26/20 04:22 09/26/20 12:26 Microbiology Microbiology 09/26/20 Urine Culture, Received Pending 09/26/20 Blood Culture, Received Pending 09/25/20 Blood Culture, Received Pending 09/25/20 Gastrointestinal Tract Panel (PCR) - Final, Complete Enteropathogenic E.coli 09/25/20 Blood Culture - Preliminary, Resulted Streptococcus Group C 09/25/20 Blood Culture - Preliminary, Resulted Streptococcus Group G Allergies Coded Allergies: ampicillin (Verified Allergy, Intermediate, rash, 05/07/18) ofloxacin (Verified Allergy, Intermediate, rash, hives, 05/07/18) Home Medications Scheduled Aspirin (Ecotrin) 81 Mg Tablet.dr, 81 MG PO QHS, (Reported) Dulaglutide (Trulicity) 1.5 Mg/0.5 Ml Pen.injctr, 1.5 MG SC QWEEK, (Reported) WEDNESDAYS Famotidine (Famotidine) 20 Mg Tablet, 20 MG PO DAILY, (Reported) Glimepiride (Glimepiride) 4 Mg Tab, 4 MG PO DAILY, (Reported) Lisinopril (Lisinopril) 10 Mg Tablet, 10 MG PO DAILY, (Reported) Loratadine (Loratadine) 10 Mg Tablet, 10 MG PO DAILY, (Reported) Magnesium Chloride (Mag64) 64 Mg Tablet.dr, 2 TAB PO QHS, (Reported) Metformin HCl (Metformin HCl) 850 Mg Tab, 850 MG PO BID, (Reported) Metoprolol Succinate (Metoprolol Succinate) 100 Mg Tab.er.24h, 100 MG PO BID, (Reported) Venlafaxine HCl (Effexor Xr) 150 Mg Cap, 150 MG PO DAILY, (Reported) BAMBI BURNS MD Sep 26, 2020 14:42
--- NOTE | 2020-09-26 14:47 | IPNPDOC ---
Date Seen The patient was seen on 09/26/20. Progress Note SUBJECTIVE: Patient seen and examined at bedside. Significant concern for alcohol withdrawal, CIWA score of 29. Discussed with the son, reports patient drinks heavily daily. Last drink 09/22/20. Blood cultures are positive for Group C and group G Streptococcus. Patient appears to be having difficulty work of breathing. Had minimal output overnight. CRRT was started but lasted only until midnight overnight. Left femoral triple-lumen catheter became nonfunctional for CRRT. Dr. Leal to place a right total jugular triple-lumen catheter this morning. Plan to resume CRRT. Right patient also became more confused and had slurred speech. CT head showed no acute abnormality. OBJECTIVE PHYSICAL EXAMINATION: VITAL SIGNS: please see below General: She appears to be in respiratory distress, having shallow frequent breathing. Increase work of breathing. HEENT: PERRLA, EOMI, sclerae clear Neck: supple, normal ROM, no JVD Respiratory: Respiratory effort, poor expansion of the lungs. Mild crackles. CVS: Tachycardic, regular, normal S1, S2, no murmurs Abdo: soft, no masses, no hepatosplenomegaly, BS+, no rebound tenderness Extremities: Cyanosis of the lateral lower extremities, mottling of the toes. Pulses absent by palpation and bedside Doppler. Right plantar surface of the foot ulcer dressed with foam dressing. Margins, clean base. Unstageable. Approximately 270s in diameter, circular. MSK: no joint deformities, normal ROM Neuro: Patient has no facial asymmetry. No pupillary asymmetry. Moving all 4 extremities. LABORATORY DATA, IMAGING STUDIES, MICROBIOLOGY: Please see below. Echocardiogram: Ordered on 09/26/20. ASSESSMENT AND PLAN: 60-year-old female, with a past medical history hem achromatosis, cirrhosis of liver, atrial fibrillation, hypertension, GERD, diabetes, chronic pulmonary nodules presented to the ER with 3 day history of diarrhea, nausea and vomiting with shortness of breath. She developed diarrhea after eating fried chicken on last Friday. Diarrhea is watery without any blood. On arrival to the ER patient was found to be hypotensive with blood pressure 73 or 46 along with tachypnea and acidosis. Lactic acid remains elevated over 10. Patient has been a uric and was found to be in acute renal failure despite receiving 5 L of normal saline. Patient had a left triple-lumen catheter placed yesterday and was planned to start [employer]. CRRT was performed until midnight overnight when the catheter became nonfunctional. Dr. Leal replace catheter this morning. CRRT being run per nephrology. Cultures were positive for group C and group G Streptococcus. Dr. Giraldo from [place] was consulted, recommending stopping vancomycin, ampicillin and to continue ceftriaxone with coverage for both Escherichia coli as well as Streptococcus. PROBLEMS: Severe sepsis - 2/2 intrabdominal infection e coli on GI panel - blood cx positive for group C and group G strep - d/w Dr. Giraldo, convert abx to ceftriaxone. Stop ampicilin, cefepime, vancomycin. - presently requires levophed - LA persistently elevated - Intesivist Dr. Leal consulted. Enteropathogenic E coli gastroenteritis. - with intractable diarrhea, vomiting and dehydration - CT abd and pelvis with no abnormality. - Dw Dr. Giraldo. convert abx to ceftriaxone. Oliguric PARDEEP - likely 2/2 dehydration from GI losses, use of ACEi - zamudio in place. CT abd and pelvis no obstruction - Will maintain a MAP> 65 - Nephrology consulted. CRRT resumed. - No nephrotoxic medications. Peripheral ischemia/R foot ulcer - noted to have mottling of bilateral feet - likely related to severe septic shock - on levophed - d/w vascular surgeon, Dr. Hester, consult placed - foam dressing - offloading boots Thrombocytopenia - likely due to sepsis. She does have h/o cirrhosis also though never thrombocytopenic. Lactic acidosis - due to sepsis and hypotension. - CRRT - unable to give more fluid as already tenuous fluid status. High anion gap metabolic acidosis - due to lactic acidosis and PARDEEP - nephrology consulted - reume CRRT - d/w Dr. Bright Kaplan, will remove equivalent fluid to daily intake. Diabetes - hold all antidiabetic medications. - Patient is not tolerating Po diet yet. - will check fs q 6 hours. Hereditary hemochromatosis - with cirrhosis in CT scan. - follows with oncology for intermittent phlebotomy. Hyppertension - now hypotensive, requires levophed - hold all BP meds Paroxysmal Afib - presently in sinus tach, I suspect due to etoh withdrawal - will continue to hold metoprolol due to hypotension, on pressor - ASA when able to take PO - valium given for etoh withdrawal GERD - continue PPI. Acute etoh withdrawal - chronic daily heavy etoh use per son - on CIWA protocol - ordered 5 mg IV valium, ativan 2 mg IV q1h prn for CIWA > 8 - thiamine, b12, folate. DVT prophylaxis will use TEDS as has thrombocytopenia. VS, I&O, 24H, Fishbone Vital Signs/I&O Vital Signs Date Time Temp Pulse Resp B/P (MAP) Pulse Ox O2 Delivery O2 Flow Rate FiO2 09/26/20 12:15 120 93/45 (61) 93 Ventilator 40 09/26/20 12:01 97.0 09/26/20 11:31 32 09/26/20 11:16 3.0 I&O- Last 24 Hours up to 6 AM 09/26/20 06:00 Intake Total 8008.1 ml Output Total 378 ml Balance 7630.1 ml Laboratory Data 24H LABS Laboratory Tests 2 09/25/20 15:59: Anion Gap 16, Glomerular Filtration Rate 20.6L, Lactic Acid Level 8.9*H, Calcium Level 7.2L, Total Bilirubin 3.4H, Aspartate Amino Transf (AST/SGOT) 224H, Alanine Aminotransferase (ALT/SGPT) 89H, Alkaline Phosphatase 65, Total Protein 5.6L, Albumin 2.8L, Albumin/Globulin Ratio 1.0L 09/25/20 20:21: Lactic Acid Followup at 4 Hours 9.8*H 09/25/20 22:16: Lactic Acid Level 8.6*H 09/26/20 00:27: Bedside Glucose (Misc Panel) 100 09/26/20 01:24: Bedside Glucose (Misc Panel) 104 09/26/20 01:50: C-Reactive Protein, Quantitative 24.30H 09/26/20 01:51: Erythrocyte Sedimentation Rate 26, Lactic Acid Level 10.8*H 09/26/20 04:09: Blood Gas Bicarbonate Standard 11.8L, Arterial Blood pH 7.183*L, Arterial Blood Partial Pressure CO2 27.0L, Arterial Blood Partial Pressure O2 98.7, Arterial Blood Total CO2 10.7L, Arterial Blood HCO3 9.9L, Arterial Blood Base Excess -16 .9L, Arterial Blood Oxygen Saturation 96.7 09/26/20 04:22: Nucleated Red Blood Cells % (auto) 0.3H, Anion Gap 19H, Glomerular Filtration Rate 18.4L, Calcium Level 6.5L, Whole Blood Ionized Calcium 3.6L, Phosphorus Level 6.2H, Magnesium Level 1.4L 09/26/20 04:39: Lactic Acid Level 10.8*H 09/26/20 07:24: Lactic Acid Level 9.6*H 09/26/20 10:39: Urine Color GEOFF, Urine Appearance TURBIDH, Urine pH 5.0, Urine Specific [place] 1.035, Urine Protein 3+H, Urine Glucose (Auto)(UA) 1+H, Urine Ketones (Auto) NEGATIVE, Urine Blood 3+H, Urine Nitrite NEGATIVE, Urine Bilirubin NEGATIVE, Urine Urobilinogen 0.2, Urine Leukocyte Esterase (Auto) TRACEH, Urine WBC (Auto) 3, Urine RBC (Auto) 166H, Urine Hyaline Casts (Auto) 0, Urine Bacteria (Auto) NEGATIVE, Urine Squamous Epithelial Cells 5, Urine Sperm (Auto) 09/26/20 12:26: Nucleated Red Blood Cells % (auto) 0.2H, Immature Platelet Fraction 10.5H, Anion Gap 16, Glomerular Filtration Rate 19.7L, Lactic Acid Followup at 4 Hours 7.9*H, Calcium Level 6.3L, Whole Blood Ionized Calcium 3.5*L, Phosphorus Level 4.8#, Magnesium Level 1.9 09/26/20 12:42: Blood Gas Bicarbonate Standard 15.0L, Arterial Blood pH 7.245*L, Arterial Blood Partial Pressure CO2 33.4L, Arterial Blood Partial Pressure O2 129.1H, Arterial Blood Total CO2 15.2L, Arterial Blood HCO3 14.2L, Arterial Blood Base Excess - 12.1L, Arterial Blood Oxygen Saturation 98.7 CBC/BMP Laboratory Tests 09/25/20 15:59 09/26/20 04:22 09/26/20 12:26 Microbiology Microbiology 09/26/20 Urine Culture, Received Pending 09/26/20 Blood Culture, Received Pending 09/25/20 Blood Culture, Received Pending 09/25/20 Gastrointestinal Tract Panel (PCR) - Final, Complete Enteropathogenic E.coli 09/25/20 Blood Culture - Preliminary, Resulted Streptococcus Group C 09/25/20 Blood Culture - Preliminary, Resulted Streptococcus Group G FERNANDO TOVAR MD Sep 26, 2020 14:47
[2020-09-26] MEDS ORDERED: ACETAMINOPHEN 325 MG SUPP PR PRN (14:55)
[2020-09-26] MEDS: fentaNYL 100 MCG/2 ML INJECTION (J3010) IV PRN ×2 (15:38→17:44)
[2020-09-26] MEDS: dexmedeTOMidine 200 MCG in IV 1 EA IV SCH ×8 (15:40→23:09)
[2020-09-26] MEDS: NS 250 ML IV SCH ×3 (15:42→17:47)
[2020-09-26] MEDS: VASOPRESSIN INJ 20 UNITS in NS 499 ML IV SCH (16:05)
[2020-09-26] MEDS: HYDROCORTISONE 100 MG/2 ML VIAL (J1720 PER 1) IV SCH ×2 (16:51→22:24)
--- NOTE | 2020-09-26 18:11 | ECHO ---
ECHOCARDIOGRAM DATE OF PROCEDURE: 09/26/2020 Age: Gender: Height: 175 cm Weight: 120 kg REFERRING PHYSICIAN: Dr. Keven Bosch INDICATION: Sepsis 2D MEASUREMENTS: LVOT 2.0 cm Ventricular septum 1.44 cm Posterior wall 1.28 cm Left ventricle diastole 4.4 cm Left ventricle systole 2.8 cm Aortic root 3.6 cm Left atrium 3.7 cm Proximal ascending aorta 3.7 cm Left atrial volume index 15 DOPPLER MEASUREMENTS; No aortic regurgitation. No aortic stenosis. Aortic valve velocity 91.5 cm/s Mitral A velocity 74.7 cm/s Very mild mitral regurgitation Mild tricuspid regurgitation Estimated right ventricle systolic pressure 28 mmHg Estimated right atrial pressure of 5 mmHg No pulmonic regurgitation. MITRAL ANNUAL TISSUE DOPPLER: Not performed DESCRIPTION: Rhythm was sinus tachycardia. The study was performed with the patient on the ventilator. Images were moderately technically difficult. Very difficult for subcostal images. CONCLUSIONS: 1. No obvious vegetations identified on any of the cardiac valves. 2. Mild concentric left ventricular hypertrophy. Normal LV systolic function. Normal regional LV wall motion and wall thickening. Normal LV systolic function. LVEF 65% by visual estimate. LV diastolic function was indeterminate on the study. 3. No pericardial effusion. 4. Mild mitral annular calcification. Very mild mitral regurgitation. 5. Normal right ventricle size and systolic function.
--- NOTE | 2020-09-26 18:22 | ROOPDOC ---
[facility] Report Of Operation Report of Operation DATE OF PROCEDURE: 09/26/20 PROCEDURE PERFORMED: Femoral arterial line cannulation. PREPROCEDURE DIAGNOSES: Septic shock. POSTPROCEDURE DIAGNOSES: Septic shock. SURGEON: Dr. Elvis MD ANESTHESIA: Local 1% lidocaine. ESTIMATED BLOOD LOSS: Approximately 3 cc. COMPLICATIONS: None. DESCRIPTION OF PROCEDURE: . After consent was obtained from patient's daughter, a time out was performed. My hands were washed immediately prior to the procedure. I wore a surgical cap, mask with protective eyewear, sterile gloves throughout the procedure. The left inguinal region was prepped using chlorhexidine scrub and draped in sterile fashion using a three quarter sheet drape and sterile towels. The femoral pulse was identified using vascular ultrasound. Anesthesia was achieved using 1% lidocaine. The introducer needle was inserted into the femoral artery under ultrasound guidance. Arterial blood was withdrawn. The syringe was removed and a guidewire was advanced through the needle into the femoral artery. The needle was exchanged over the wire for an arterial catheter. The wire was removed and the catheter was secured to the skin using a suture. The patient tolerated the procedure without any hemodynamic compromise. At time of procedure completion, the catheter was connected to the credit portfolio manager and calibrated. Appropriate waveform and blood pressure tracing was observed. Estimated blood loss is 3cc. BAMBI BURNS MD Sep 26, 2020 18:22
[2020-09-26 20:41] LABS: HEMOGLOBIN 10.8 g/dl (12.0-15.5); MEAN CORPUSCULAR HEMOGLOBIN 34.4 pg (27.0-33.0); MEAN CORPUSCULAR HGB CONC 32.7 g/dl (32.0-36.5); MEAN CORPUSCULAR VOLUME 105.1 fl (80.0-96.0); RED BLOOD COUNT 3.14 10^6/uL (4.00-5.40); WHITE BLOOD COUNT 10.6 10^3/uL (4.0-10.0)
[2020-09-26 20:42] LABS: PLATELET COUNT, AUTOMATED 34 10^3/uL (150-450)
[2020-09-26 21:11] LABS: CREATININE FOR GFR 1.65 MG/DL (0.55-1.30); GLOMERULAR FILTRATION RATE 33.7 (>45); MAGNESIUM LEVEL 1.5 MG/DL (1.8-2.4); POTASSIUM SERUM 3.7 MEQ/L (3.5-5.1)
[2020-09-26] MEDS: CALCIUM GLUCONATE 1,000 MG in NS 100 ML IV SCH ×2 (22:24→23:27)
[2020-09-27] VITALS (59 sets, daily range): BP systolic 82–168; BP diastolic 35–93
[2020-09-27] MEDS: dexmedeTOMidine 200 MCG in IV 1 EA IV SCH ×15 (00:17→15:49)
[2020-09-27] MEDS: CALCIUM GLUCONATE 1,000 MG in NS 100 ML IV SCH ×3 (00:34→10:37)
[2020-09-27] MEDS: VASOPRESSIN INJ 20 UNITS in NS 499 ML IV SCH ×2 (00:34→08:06)
[2020-09-27] MEDS ORDERED: KCL 20MEQ IN 100ML SWI (KRUN) 20 MEQ in IV 1 EA IV ONE ×2 (01:00)
[2020-09-27] MEDS: MAG SULF 1GM/100ML (MAG RUN) 1 GM in IV 1 EA IV SCH ×2 (02:01→03:08)
[2020-09-27] MEDS: HYDROCORTISONE 100 MG/2 ML VIAL (J1720 PER 1) IV SCH ×2 (03:43→09:16)
[2020-09-27 04:37] LABS: HEMOGLOBIN 10.8 g/dl (12.0-15.5); MEAN CORPUSCULAR HEMOGLOBIN 34.1 pg (27.0-33.0); MEAN CORPUSCULAR HGB CONC 32.7 g/dl (32.0-36.5); MEAN CORPUSCULAR VOLUME 104.1 fl (80.0-96.0); RED BLOOD COUNT 3.17 10^6/uL (4.00-5.40); WHITE BLOOD COUNT 9.5 10^3/uL (4.0-10.0)
[2020-09-27 04:42] LABS: PLATELET COUNT, AUTOMATED 23 10^3/uL (150-450)
[2020-09-27] MEDS: fentaNYL 100 MCG/2 ML INJECTION (J3010) IV PRN (04:43)
[2020-09-27] MEDS: NOREPINEPHRINE BITARTRATE 8 MG in D5W 492 ML IV SCH (05:11)
[2020-09-27 05:13] LABS: CALCIUM LEVEL 7.6 MG/DL (8.8-10.2); CREATININE FOR GFR 1.76 MG/DL (0.55-1.30); GLOMERULAR FILTRATION RATE 31.3 (>45); MAGNESIUM LEVEL 2.6 MG/DL (1.8-2.4); PHOSPHORUS LEVEL 3.3 MG/DL (2.5-4.9); POTASSIUM SERUM 4.8 MEQ/L (3.5-5.1)
--- NOTE | 2020-09-27 05:16 | IPN ---
PROGRESS NOTE DATE: 09/26/2020 SUBJECTIVE: I saw Ms. Terry twice today at the bedside in the Intensive Care Unit, the first time was earlier this morning when she was still on nasal cannula. Her son was present at the bedside at that time. The patient was very confused and was speaking nonsensically at that time. Her CRRT was held overnight because of poor catheter flow and she had a left IJ dialysis catheter placed subsequently this morning by raw finish mill operator. She was able to resume on CRRT. The patient did have deterioration in her respiratory status and was intubated in the afternoon. She also had increasing pressor requirements and was requiring up to 20 mcg of Levophed, subsequently Vasopressin and stress dose steroids were added. The patient was also noted to have mottling of her legs and vascular surgery consultation was additionally requested. The patient also became hypothermic necessitating bear hugger. I saw her again in the afternoon when she was intubated and continuing on CRRT. OBJECTIVE: VITAL SIGNS: Temperature 96.0, pulse 116, respiratory rate 20, blood pressure 86/52, saturating 92% on 40% FIO2. INTAKE AND OUTPUT: Intake yesterday was 7.4 liters, intake thus far today was 1.2 liters. Weight on the bed scale today was 128.9 kg. GENERAL: Patient was seen in the morning when she was altered and delirious and speaking nonsensically while on nasal cannula and then later in the afternoon sedated and intubated. HEENT: Extraocular muscles were intact. Pupils reactive to light. Tongue was dry. NECK: Supple. There is a hemodialysis catheter in the left IJ and a port in the right chest wall. HEART: Heart sounds were tachycardic and irregularly irregular. LUNGS: Lung sounds were shallow with rapid respirations while the patient was on nasal cannula and later she was seen intubated and mechanically ventilated with bilateral breath sounds. ABDOMEN: Soft, obese and nontender. GENITOURINARY: Jaramillo catheter with minimal urine in the tubing. EXTREMITIES: Mottled appearance of the feet and no significant edema. LABORATORY DATA: Sodium 141, potassium 3.7, bicarbonate 13, BUN 29, creatinine 1.6, lactic acid 6.9, ionized calcium 3.5, magnesium 1.5, phosphorus 3.0. Blood cultures grew streptococcus Group G and streptococcus Group C. Repeat blood cultures from September 26 and initial urine culture from September 26 is pending. Chest x-ray done today shows no focal infiltrates and no pleural effusions. INPATIENT MEDICATIONS: She is on Levophed at 15 mcg. She is on Vasopressin at 4 units, she is receiving supplementation of calcium gluconate, magnesium sulfate and potassium chloride. She is on Ceftriaxone 2 grams IV daily, Precedex, hydrocortisone 50 mg IV q. 6 hourly, Ativan p.r.n., Versed x1 dose, Pantoprazole 40 mg IV daily. PROBLEMS: 1. Acute oligoanuric renal failure in the setting of severe septic shock and concomitant use of NSAIDs (she was taking Motrin at home) and also with subsequent exposure to contrast dye in the setting of profound hypotension. Patient is critically ill. She is on CRRT. She is on two pressors along with stress dose steroids. Despite CRRT, she is considerably acidotic which is a very poor prognostic sign. I did discuss fluid status with raw finish mill operator, Dr. Leal, and a decision was made not to try and remove fluids with dialysis today as she has had significant increasing pressor requirements and increasing hemodynamic instability. Even attempts at simply keeping her "even" on CRRT resulted in significant escalation in pressors. I do not expect her to have renal recovery anytime soon given the clinical course. We will continue her on CRRT at present. 2. Anion gap metabolic acidosis secondary to lactic acidosis secondary to severe septic shock. She is on two pressors and stress dose steroids. She is on broad spectrum antibiotics, positive blood culture and GI PCR is noted. Her ongoing acidosis despite CRRT is a poor prognostic sign. Infectious Diseases is following as well for management of her antibiotics. 3. Severe sepsis, blood cultures positive for Group C and Group G streptococcus. Patient also has E. coli on GI PCR. Nursing staff reports she has not had any diarrhea today. She is on antibiotics managed by raw finish mill operator and is on two pressors at this time and stress dose steroids. 4. Ventilator dependent respiratory failure. Lung imaging from today did not show any pulmonary edema nor pleural effusion. Her FIO2 requirement at this time is 40%. I discussed fluid status with Dr. Leal. We will not remove fluid today with her CRRT. 5. Hypokalemia, hypomagnesemia, hypocalcemia. She is receiving electrolyte supplementation. 6. Thrombocytopenia. Her platelet count continues to fall in the setting of severe sepsis. She is receiving Heparin free dialysis.
--- NOTE | 2020-09-27 08:54 | CR ---
CONSULTATION DATE: 09/26/2020 Asked to consult by hospitalist and intensive care unit (ICU) attending for patient with septic shock and streptococcal bacteremia. HISTORY OF PRESENT ILLNESS: Elsa is a 60-year-old female with a history of hemachromatosis, liver cirrhosis, and splenomegaly by CT, who presented with a 3-day history of diarrhea, nausea, and vomiting. She then developed shortness of breath that progressively got worse. The patient was having at least three bowel movements a day. She denied having any abdominal pain or cramps. She had some vomiting and dry heaves. Patient on the day of admission was able to give a history, but today she got much worse and got intubated. She was having increasing shortness of breath and therefore came to the emergency room. She was also complaining of bilateral shoulder pain. In the emergency room (ER) the patient was hypotensive with a blood pressure of 73/46. She is currently on two pressors, as she was acidotic with a pH of 7.2 and in acute renal failure. The patient has been receiving continuous renal replacement therapy (CRRT) since yesterday. She had a hemodialysis catheter placed in her right internal jugular (IJ), a left femoral line placed. MEDICATIONS ON ADMISSION: - aspirin 81 mg daily - Trulicity 1.5 mg weekly - famotidine 20 mg daily - glimepiride 4 mg daily - lisinopril 10 mg daily - loratadine 10 mg daily - Mag64 two tablets by mouth every night - metformin 850 mg twice a day - metoprolol 100 mg every 24 hours - venlafaxine 150 mg daily MEDICATIONS IN THE HOSPITAL: - vasopressin - ceftriaxone 2 grams intravenous (IV) every 24 hours - fentanyl every 2 as needed - Precedex infusion - folic acid 1 mg daily - multivitamin daily - lorazepam as needed for withdrawals Patient also has received ampicillin on September 25, three doses, vancomycin 1 gram IV on September 25, one dose, Zithromax one dose on September 25. ALLERGIES: AMPICILLIN AND OFLOXACIN MEDICAL HISTORY: 1. 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 Received a phlebotomy every 4 months and follows up with hematology. 2. Liver cirrhosis and splenomegaly by CT, probably related to liver hemachromatosis. 3. Pulmonary nodules. 4. Subcentimeter thyroid cyst. 5. Malabsorption syndrome. 6. Hypertension. 7. Gastroesophageal reflux disease. 8. Diabetes. 9. Atrial fibrillation. 10. Morbid obesity. SURGICAL HISTORY: 1. Tonsillectomy. 2. Cholecystectomy. 3. Appendectomy. 3. section. 4. Left knee surgery. 5. Carpal tunnel surgery. 6. Thyroid surgery. 7. A port insertion, right internal jugular (IJ) in June [address] Stephens. 8. Colonoscopy in July 2017. REVIEW OF SYSTEMS: On admission patient denied any fever, chills, or night sweats. She reported weakness and fatigue. She had nausea, vomiting, and diarrhea as well as shortness of breath but no cough. She had no pleurisy. Currently I could not obtain any of her review of systems, as she is intubated and sedated. PHYSICAL EXAMINATION: She is a sick-looking, intubated, sedated female. HEART: Normal S1, S2. Tachycardic. No murmurs, rubs, or gallops appreciated. LUNGS: Clear. No wheezes, rales, or rhonchi. Diminished at the bases. ABDOMEN: Morbidly obese, soft, nontender. EXTREMITIES: Cyanosis of all 10 toes. Right foot has an ulcer on the plantar area, measuring about 1.5 x 1 cm with no surrounding cellulitis and no purulent discharge. Dorsalis pedis pulses could not be felt, but according to [facility] nurse at the bedside, they could be obtained on Doppler. She has an area of ecchymosis and bluish discoloration medially along the left lateral malleolus. Joints: No synovitis. NEUROLOGIC: Seems to be moving all extremities. Patient is currently sedated. HEAD AND ENT: Oropharynx with a gastrostomy (G) tube, intubated, dry mucosa. Pupils equal and reactive, anicteric sclerae. Neck is supple. SKIN: Dry with blotchy rash on her upper extremities. Macules that are bout 3-4 cm in size on both arms. LABORATORY DATA: White count 9.3, hemoglobin 10.7, hematocrit 33.2, platelets 38, ESR 26. Sodium 136, potassium 4.8, chloride 108, bicarbonate 17, BUN 41, creatinine 2.62, glucose 135, lactic acid 10.8 on admission, down to 7.9, calcium 6.3, phosphorus 4.8, magnesium 1.9. CRP 24.3. AST 224, ALT 89, alkaline phosphatase 65, total protein 5.6, albumin 2.8. Blood cultures on admission, one from the port and one peripherally, had group C strep and group G strep. Stool culture had enteropathogenic Escherichia (E) coli. Repeat blood cultures done today are still pending, Urine culture is pending. IMAGING: CT abdomen and pelvis showed liver cirrhosis with mild to moderate splenomegaly, pancreatic atrophy. No acute findings of infectious process. CT done on September 25 showed mild sialadenitis of the left submandibular gland. No calculus. Absent right thyroid. Right Port-A-Cath extending to the superior vena cava and ethmoid disease. CT chest: Mild cardiomegaly. Diffuse decreased intraparenchymal density consistent with steatosis. Enlargement of the liver with lobular contour, suggestive of cirrhosis. Chest x-ray: Endotracheal (ET) tube tip 2.8 cm above the priyank. Nasogastric (NG) tube traverses the stomach. Heart and mediastinum unchanged. Lungs: No change. There are some prominent interstitial markings. IMPRESSION: This is a 60-year-old female who was admitted in septic shock. She is currently on two pressors, Levophed and vasopressin. She is intubated, sedated. She was found to have streptococcal bacteremia with group C/G strep. Whether these are two different pathogens or one pathogen with misidentification, this is most likely of gastrointestinal (GI) origin. She had enteropathogenic E. coli diarrhea, and that could have caused the colitis, which led to the bacteremia. The other possible source of her streptococcal bacteremia could have been her [id number], although it does not seem that it had been accessed in awhile. She has received multiple antibiotics, currently on IV Rocephin 2 grams every 24 hours, which is appropriate coverage for enteropathogenic E. coli as well as streptococcus bacteria. PLAN: Repeat blood cultures are pending. Echocardiogram was done today and is pending results to rule out endocarditis. If patient has persistent bacteremia, port may need to be removed, but if cultures are negative, then the port can remain. I suggest using the port for IV antibiotics. Case was discussed with ICU attending present at the bedside. As soon as she has different access than her femoral line, I would suggest removing that line, as she is morbidly obese, and this can increase her risk of candidemia.
--- NOTE | 2020-09-27 08:54 | CR ---
CONSULTATION DATE: 09/26/2020 REASON FOR CONSULTATION: Sepsis with ischemic lower extremities bilaterally. HISTORY OF PRESENT ILLNESS: Ms. Elsa Terry has been admitted with diarrhea and severe sepsis. She is now on pressors and was recently intubated today. Though the course of the day, the nursing team and the physician taking care of her noted increased mottling to the fingertips and also the toes. No loss of ability to gain a blood pressure in her arms, as she has become more progressively sick and ill. The blood pressure from the cuff on the right continues to measure in the 90s and they had difficulty gaining a signal in her lower extremities. No pulses are palpable and her toes are all purplish and discolored. A vascular surgery consultation was obtained. REVIEW OF SYSTEMS: Could not be completed. PHYSICAL EXAMINATION: The patient was intubated and deeply sedated and could not be examined. Her upper extremities and lower extremities are pale, with pallor and she has a very weak, thready pulse at the radial artery bilaterally. Lower extremities have nonpalpable femoral, popliteal, dorsalis pedis (DP) or posterior tibialis (PT) pulses bilaterally. Of note, on checking the Doppler, the Doppler did not work initially on my own arm, and I was able to readjust the machine and immediately gain a signal on my arm as well as on the patient's legs bilaterally with a very good dorsalis pedis signal and posterior tibial signal in both legs. Due to the fact that the blood pressure was adequate in the legs and the capillary refill is still present, I do think that the patient is in septic shock, but I do not think that there is any acute ischemic insult, such as a thrombosis or occlusion of arteries or veins that would require any vascular surgery intervention. At this point, I just simply recommend continuing to keep the legs dependent and the patient on heparin and warming the legs and treating her supportively.
--- NOTE | 2020-09-27 08:59 | IPNPDOC ---
Subjective Date Seen The patient was seen on 09/27/20. Subjective Chief Complaint/HPI Patient remains intubated and sedated. Patient is very critical. General: Reports: ROS Unobtainable Objective Physical Examination General Exam: Positive: Moderate Distress Eye Exam: Positive: PERRLA, Sclera icteric ENT Exam: Positive: Atraumatic Neck Exam: Negative: JVD Chest Exam: Positive: Clear to auscultation, Normal air movement Heart Exam: Positive: Tachycardic, Irregular Rhythm; Negative: Murmurs, Rubs Abdomen Exam: Positive: BS Hypoactive, Soft; Negative: Tenderness Extremity Exam: Positive: Cyanosis, Other (Cyanotic extremities with mottling); Negative: Clubbing, Edema Skin Exam: Positive: Other skin issue (Multiple skin mottling); Negative: Breakdown Assessment /Plan Assessment This is a 60-year-old female with past medical history of territory hemochromatosis, suspected cirrhosis from hemochromatosis, frequent phlebotomy every 4 months, pulmonary nodule, hypertension, diabetes, GERD, atrial fibrillation who presented to the hospital on September 25, 2020 with nausea vomiting and diarrhea. Plan/VTE VTE Prophylaxis Ordered?: Yes Plan 1. Septic shock secondary to group G Streptococcus bacteremia -She has underlying hemochromatosis which predispose her to peg intrac ellular organism. Less likely it is from the right-sided port as this was infrequently used for phlebotomy. -Continue with norepinephrine and vasopressin. Stress dose steroids. -Sensitivity with ceftriaxone. 2. Acute respiratory failure. -Secondary to septic shock and profound metabolic/lactic acidosis. -We will remain intubated targeting higher minute volume to compensate for the ongoing acidosis. 3. PARDEEP -Continue with CRRT. Currently without any ultrafiltration. Mainly for clearance. 4. Metabolic encephalopathy -Secondary to septic shock and respiratory failure. She will remain sedated with Precedex and fentanyl as needed. 5. New onset of atrial fibrillation -This is related to underlying septic shock and being on Levophed. Rate is currently controlled. We will continue to observe. 6. Multiorgan failure -Prognosis is poor given at least 3 organs failure with high mortality rate. Family had change her CODE STATUS to DNR. But they would like to continue with ongoing medical care. 7. Metabolic acidosis secondary to lactic acidosis -Management as #3. Lactic acidosis improving with CRRT. 8. History is no hemochromatosis -She gets frequent phlebotomy every 4 months. 9. History is a liver cirrhosis -compensated 10. Thrombocytopenia -Likely secondary to liver cirrhosis as well as septic shock with consumptive process. Current platelet level does not meet the indication for transfusion. 11. History is of suspected cirrhosis. -This was reported on radiographic imaging. She never had a biopsy of the liver. Prognosis: Prognosis extremely poor as patient is a multiorgan failure with very high mortality rate. Family had changed her CODE STATUS to DNR but will still like to proceed with ongoing medical care. DVT prophylaxis: Mechanical prophylaxis as patient is thrombocytopenic. GI prophylaxis: Protonix Diet NPO. Disposition Continue ICU care VS, I&O, 24H, Fishbone Vital Signs/I&O Vital Signs Date Time Temp Pulse Resp B/P (MAP) Pulse Ox O2 Delivery O2 Flow Rate FiO2 09/27/20 08:02 96.4 105 21 99/54 (95) 100 Ventilator 55 116/84 09/26/20 11:16 3.0 I&O- Last 24 Hours up to 6 AM 09/27/20 06:00 Intake Total 3423.4 ml Output Total 295 ml Balance 3128.4 ml Laboratory Data 24H LABS Laboratory Tests 2 09/26/20 10:39: Urine Color GEOFF, Urine Appearance TURBIDH, Urine pH 5.0, Urine Specific [place] 1.035, Urine Protein 3+H, Urine Glucose (Auto)(UA) 1+H, Urine Ketones (Auto) NEGATIVE, Urine Blood 3+H, Urine Nitrite NEGATIVE, Urine Bilirubin NEG ATIVE, Urine Urobilinogen 0.2, Urine Leukocyte Esterase (Auto) TRACEH, Urine WBC (Auto) 3, Urine RBC (Auto) 166H, Urine Hyaline Casts (Auto) 0, Urine Bacteria (Auto) NEGATIVE, Urine Squamous Epithelial Cells 5, Urine Sperm (Auto) 09/26/20 12:26: Nucleated Red Blood Cells % (auto) 0.2H, Immature Platelet Fraction 10.5H, Anion Gap 16, Glomerular Filtration Rate 19.7L, Lactic Acid Followup at 4 Hours 7.9*H, Calcium Level 6.3L, Whole Blood Ionized Calcium 3.5*L, Phosphorus Level 4.8#, Magnesium Level 1.9 09/26/20 12:42: Blood Gas Bicarbonate Standard 15.0L, Arterial Blood pH 7.245*L, Arterial Blood Partial Pressure CO2 33.4L, Arterial Blood Partial Pressure O2 129.1H, Arterial Blood Total CO2 15.2L, Arterial Blood HCO3 14.2L, Arterial Blood Base Excess - 12.1L, Arterial Blood Oxygen Saturation 98.7 09/26/20 18:18: Bedside Glucose (Misc Panel) 96 09/26/20 20:19: Nucleated Red Blood Cells % (auto) 0.2H, Anion Gap 14, Glomerular Filtration Rate 33.7L, Calcium Level 5.0#*L, Whole Blood Ionized Calcium 3.5*L, Phosphorus Level 3.0#, Magnesium Level 1.5L 09/26/20 21:50: Lactic Acid Level 6.9*H 09/27/20 00:27: Bedside Glucose (Misc Panel) 107 09/27/20 04:19: Nucleated Red Blood Cells % (auto) 0.4H, Anion Gap 11, Glomerular Filtration Rate 31.3L, Calcium Level 7.6#L, Whole Blood Ionized Calcium 4.3L, Phosphorus Level 3.3, Magnesium Level 2.6H, Lactic Acid Followup at 4 Hours 5.3*H CBC/BMP Laboratory Tests 09/26/20 12:26 09/26/20 20:19 09/27/20 04:19 Microbiology Microbiology 09/26/20 Urine Culture, Received Pending 09/26/20 Blood Culture - Preliminary, Resulted No growth after 24 hours . All specim... 09/25/20 Blood Culture - Preliminary, Resulted No growth after 24 hours . All specim... 09/25/20 Gastrointestinal Tract Panel (PCR) - Final, Complete Enteropathogenic E.coli 09/25/20 Blood Culture - Final, Complete Streptococcus Group G 09/25/20 Blood Culture - Final, Complete Streptococcus Group G BAMBI BURNS MD Sep 27, 2020 08:59
[2020-09-27] MEDS: THIAMINE 100 MG TAB PO SCH (09:00)
[2020-09-27] MEDS: FOLIC ACID 1 MG TAB PO SCH (09:00)
[2020-09-27 09:14] LABS: ALBUMIN 2.4 GM/DL (3.2-5.2); ALT/SGPT 88 U/L (12-78); BILIRUBIN,TOTAL 4.2 MG/DL (0.2-1.0); TOTAL PROTEIN 5.3 GM/DL (6.4-8.2); TROPONIN I < 0.02 NG/ML (< 0.10)
[2020-09-27 09:46] LABS: ABG HCO3 16.7 MEQ/L (22.0-26.0); ABG O2 SATURATION 96.9 % (95.0-99.0); ABG PARTIAL PRESSURE CO2 31.7 mmHg (35.0-45.0); ABG PARTIAL PRESSURE O2 97.8 mmHg (75.0-100.0); ABG TOTAL CO2 17.7 MEQ/L (23.0-31.0); ABG pH (ARTERIAL) 7.339 UNITS (7.350-7.450)
[2020-09-27 09:57] LABS: INR 1.68; PROTHROMBIN TIME 20.3 SECONDS (12.7-14.5)
[2020-09-27 10:13] LABS: ALBUMIN 2.2 GM/DL (3.2-5.2); BILIRUBIN,DIRECT 4.1 MG/DL (0.0-0.2); BILIRUBIN,TOTAL 4.8 MG/DL (0.2-1.0); TOTAL PROTEIN 4.6 GM/DL (6.4-8.2)
[2020-09-27 12:14] LABS: HEMATOCRIT 32.9 % (36.0-47.0); HEMOGLOBIN 10.7 g/dl (12.0-15.5); MEAN CORPUSCULAR HEMOGLOBIN 33.6 pg (27.0-33.0); MEAN CORPUSCULAR HGB CONC 32.5 g/dl (32.0-36.5); MEAN CORPUSCULAR VOLUME 103.5 fl (80.0-96.0); RED BLOOD COUNT 3.18 10^6/uL (4.00-5.40)
[2020-09-27 12:17] LABS: PLATELET COUNT, AUTOMATED 24 10^3/uL (150-450)
[2020-09-27] MEDS: PANTOPRAZOLE 40MG VIAL (C9113 PER 1) IV SCH (12:25)
[2020-09-27 12:50] LABS: CALCIUM LEVEL 7.9 MG/DL (8.8-10.2); CREATININE FOR GFR 1.64 MG/DL (0.55-1.30); GLOMERULAR FILTRATION RATE 33.9 (>45); MAGNESIUM LEVEL 2.3 MG/DL (1.8-2.4); PHOSPHORUS LEVEL 3.1 MG/DL (2.5-4.9); POTASSIUM SERUM 4.5 MEQ/L (3.5-5.1)
[2020-09-27] MEDS ORDERED: CALCIUM GLUCONATE 1,000 MG, VIAL MATE ADAPTER 1 EACH in NS 100 ML IV ONE (13:00)
[2020-09-27] MEDS: cefTRIAXone SOD 2 GM in D5W MINI-BAG PLUS 50 ML IV SCH (13:52)
[2020-09-27] MEDS ORDERED: MORPHINE 10 MG/ML 1ML VIAL (J2270) As Ordered ONE (16:08)
[2020-09-27] MEDS: MORPHINE 10 MG/ML 1ML VIAL (J2270) IV PRN ×4 (16:10→20:12)
[2020-09-27] MEDS: LORazepam 2 MG/ML VIAL IV PRN ×3 (16:14→20:25)
--- NOTE | 2020-09-27 21:09 | IPN ---
NEPHROLOGY PROGRESS NOTE DATE: 09/27/2020 SUBJECTIVE: I again attended to Miss Hunter in the ICU. She is continuing to not do well. She remains intubated on 55% FiO2. She continues to require two pressors (Levophed currently at 15 mcg and Vasopressin currently at 4 units). She is also on stress dose steroids. She remains in oligoanuric renal failure requiring CRRT. The patient is having increasingly mottled appearance of her feet and fingertips and she is hypothermic requiring Melissa hugger. Laboratory studies show worsening thrombocytopenia. Her lactic acidosis is improving with CRRT. OBJECTIVE: VITAL SIGNS: Temperature 98.6, pulse 112, respiratory rate 28, blood pressure 104/53, saturating 94-95% on ventilator. FiO2 45-55%. INTAKE AND OUTPUT: Intake yesterday was 2.5 liters. Urine output yesterday was 140 mL. Weight in the bed scale is 135 kg which is 15 kg up from admission. PHYSICAL EXAMINATION: GENERAL APPEARANCE: The patient is seen intubated and mechanically ventilated. HEENT: There is some mild icterus of the sclerae. Her pupils are reactive. There is an endotracheal tube in place. NECK: There is a dialysis catheter in the right neck. There is a chemo port present. HEART: Tachycardic and irregularly irregular. Peripheral pulses are diminished and difficult to appreciate. There is cyanosis of her fingertips and purple mottling of the feet. LUNGS: Coarse breath sounds bilaterally. ABDOMEN: Obese and soft. Bowel sounds are hypoactive. GENITOURINARY: Jaramillo catheter with minimal urine. EXTREMITIES: No edema but there is cyanosis of the extremities with mottling. She is seen on Melissa hugger. NEUROLOGICAL: Unable to assess. She is sedate. LABORATORY STUDIES: Sodium 136, potassium 4.5, bicarbonate 19, BUN 30, creatinine 1.6, calcium 7.9, phosphorous 3.1, magnesium 2.3, hemoglobin 10.7, platelet count 24. Microbiology repeat blood culture from yesterday shows no growth. Urine culture is pending. INPATIENT MEDICATIONS: The patient continues on Levophed presently at 15 mcg., Vasopressin presently at 4 units. She has received multiple runs of calcium gluconate supplementation along with potassium chloride and magnesium sulfate. She is on Ceftriaxone 2 grams IV daily, Precedex, Hydrocortisone 50 mg IV q. 6 hourly, Protonix 40 mg IV daily. PROBLEMS: 1. Oligoanuric acute renal failure in the setting of severe septic shock - The patient remains CRRT dependent at this time. Orders are written. Her current effluent is 21 mL per kg per hour which is optimal. We will try to keep her in equivalent fluid balance today so that we remove her hourly intake with the CRRT prescription. There are no signs of renal recovery and as the patient continues to require two pressors, we are no where near being able to transition to hemodialysis at this point. Her acidosis is improving as have her electrolytes. 2. Anion gap metabolic acidosis secondary to lactic acidosis it is being managed with CRRT. She is on an optimal prescription given an effluent of 21 mL per kg per hour at this time. And we are going to try to remove some fluid today as she has now become considerably positive in fluid balance. 3. Septic shock in the setting of bacteremia requiring two pressors and stress dose steroids antibiotics are managed as per Primary Team. Unfortunately, she is doing worse with multiorgan dysfunction and increase in thrombocytopenia and increasing markers of liver dysfunction as well with rising bilirubin. 4. Disposition - The patient remains critically ill and condition is very guarded. We will continue with CRRT as long as the family wants to continue with measures. She is currently DNR but the family would like to continue with ongoing medical care at this time.
--- NOTE | 2020-09-27 23:30 | ECGEPIP ---
[facility] Test Date: 2020-09-26 Pat Name: PEYTON SOTO Department: Room: [place] [address] Gender: Female Plc Engineer: edith : [id number] Requested By: MARTINA QUESADA Order Number: [id number] Reading MD: Everett Fan Measurements Intervals [place] Rate: 132 P: [place]: 144 QRS: -46 QRSD: 86 T: 33 QT: 336 QTc: 497 Interpretive Statements Sinus tachycardia Left anterior fascicular block Increased heart rate compared with 09/25/2020 at 6:39 AM Electronically Signed on 09-27-2020 23:30:26 EDT by Everett Fan
--- NOTE | 2020-09-28 09:51 | DS.PDOC ---
Discharge Summary General Date of Admission Sep 25, 2020 at 09:29 Date of Discharge 09/27/2020 Primary Care Physician: SARAH CRAMER MD Attending Physician: BAMBI BURNS MD Specialist/Consultants Involve: WILLIAM SMALLS DO Discharge Summary PROCEDURES PERFORMED DURING STAY: Dialysis catheter insertion, central line insertion, femoral line insertion, endotracheal intubation. ADMITTING DIAGNOSES: 1. Septic shock secondary to bacteremia. 2. Group G Streptococcus bacteremia 3. Severe metabolic/lactic acidosis 4. Acute respiratory failure 5. Metabolic encephalopathy 6. PARDEEP 7. History of hemochromatosis 8. History is of alcohol abuse 9. History is of cirrhosis 10. Multiorgan failure DISCHARGE DIAGNOSES: 1. Septic shock secondary to bacteremia. 2. Group G Streptococcus bacteremia 3. Severe metabolic/lactic acidosis 4. Acute respiratory failure 5. Metabolic encephalopathy 6. PARDEEP 7. History of hemochromatosis 8. History is of alcohol abuse 9. History is of cirrhosis 10. Multiorgan failure COMPLICATIONS/CHIEF COMPLAINT: Diarrhea,Sepsis. HISTORY OF PRESENT ILLNESS: Abdominal pain and diarrhea. HOSPITAL COURSE: This was a 60-year-old female with past medical history of hereditary hemochromatosis who gets phlebotomy every 4 months, liver cirrhosis, history of alcohol abuse presented to hospital with abdominal pain and diarrhea. Patient was found to have enteropathogenic E. coli in the stool. On admission, she was in refractory hypotension/shock with immediate blood culture grew gram- positive cocci in chains which later identified as group G strep. She was given multiple broad-spectrum antibiotic on admission and started on vasopressor support. She was also initiated on CRRT due to severe metabolic and lactic acidosis. Following day after her hospital admission, patient became lethargic and subsequent obtundation. Therefore she was emergently intubated. She was on multiple vasopressor agent for hemodynamic support. She has significant cyanotic digits and toes. Transthoracic echocardiogram done showed no evidence of valvular vegetation. Despite antibiotic administration for her bacteremia and organ support including ventilator, vasopressor, CRRT, she continues to decline due to multiorgan failure. On the third day of her hospitalization, her family decided to make her DNR/DNI and transition her to comfort care. Patient initiated on analgesic and benzodiazepine. She was subsequently extubated and comfortably on 09/27/2020 at 2039. DISCHARGE MEDICATIONS: Please see below. ALLERGIES: Please see below. PHYSICAL EXAMINATION ON DISCHARGE: VITAL SIGNS: Please see below. Absence of spontaneous breath. Absence of brainstem reflexes. Pupils not reactive and dilated. LABORATORY DATA: Please see below. DISPOSITION: 20 . DISCHARGE CONDITION: Patient on comfort care. TIME SPENT ON DISCHARGE: 30 minutes. Vital Signs/I&Os Vital Signs Date Time Temp Pulse Resp B/P (MAP) Pulse Ox O2 Delivery O2 Flow Rate FiO2 09/27/20 15:41 99/42 09/27/20 15:15 98.6 112 94 Ventilator 45 09/27/20 15:08 28 09/26/20 11:16 3.0 I&O- Last 24 Hours up to 6 AM 09/28/20 06:00 Intake Total 1456.1 ml Output Total 569 ml Balance 887.1 ml Laboratory Data Labs 24H Laboratory Tests 2 09/27/20 11:56: Nucleated Red Blood Cells % (auto) 0.5H, Anion Gap 12, Glomerular Filtration Rate 33.9L, Calcium Level 7.9L, Whole Blood Ionized Calcium 4.6, Phosphorus Level 3.1, Magnesium Level 2.3 CBC/BMP Laboratory Tests 09/27/20 11:56 Microbiology Microbiology 09/26/20 Urine Culture - Final, Complete 09/26/20 Blood Culture - Preliminary, Resulted No Growth after 48 hours. All Specime... 09/25/20 Blood Culture - Preliminary, Resulted No Growth after 48 hours. All Specime... 09/25/20 Gastrointestinal Tract Panel (PCR) - Final, Complete Enteropathogenic E.coli 09/25/20 Blood Culture - Final, Complete Streptococcus Group G 09/25/20 Blood Culture - Final, Complete Streptococcus Group G Discharge Medications Scheduled Aspirin (Ecotrin) 81 Mg Tablet.dr, 81 MG PO QHS, (Reported) Dulaglutide (Trulicity) 1.5 Mg/0.5 Ml Pen.injctr, 1.5 MG SC QWEEK, (Reported) WEDNESDAYS Famotidine (Famotidine) 20 Mg Tablet, 20 MG PO DAILY, (Reported) Glimepiride (Glimepiride) 4 Mg Tab, 4 MG PO DAILY, (Reported) Lisinopril (Lisinopril) 10 Mg Tablet, 10 MG PO DAILY, (Reported) Loratadine (Loratadine) 10 Mg Tablet, 10 MG PO DAILY, (Reported) Magnesium Chloride (Mag64) 64 Mg Tablet.dr, 2 TAB PO QHS, (Reported) Metformin HCl (Metformin HCl) 850 Mg Tab, 850 MG PO BID, (Reported) Metoprolol Succinate (Metoprolol Succinate) 100 Mg Tab.er.24h, 100 MG PO BID, (Reported) Venlafaxine HCl (Effexor Xr) 150 Mg Cap, 150 MG PO DAILY, (Reported) Allergies Coded Allergies: ampicillin (Verified Allergy, Intermediate, rash, 05/07/18) ofloxacin (Verified Allergy, Intermediate, rash, hives, 05/07/18) BAMBI BURNS MD Sep 28, 2020 09:51
== END 2020-09-27 20:39 | disposition expired | DRG 720 ==
LOC: M ED 06:13 → M ED INP 09:29 → ENRESERV 10:50 → M ICU 11:20
PROVIDERS: ADMIT Internal Medicine Nephrology; ATTEND Internal Medicine Nephrology
DX: A40.8 Other streptococcal sepsis (principal); J96.00 Acute respiratory failure, unspecified whether with hypoxia or hypercapnia; R65.21 Severe sepsis with septic shock; G93.41 Metabolic encephalopathy; N17.9 Acute kidney failure, unspecified; D69.6 Thrombocytopenia, unspecified; E87.2 Acidosis; E11.51 Type 2 diabetes mellitus with diabetic peripheral angiopathy without gangrene; A04.0 Enteropathogenic Escherichia coli infection; E66.01 Morbid (severe) obesity due to excess calories; K74.60 Unspecified cirrhosis of liver; E83.110 Hereditary hemochromatosis; Z66 Do not resuscitate; Z51.5 Encounter for palliative care; Z79.899 Other long term (current) drug therapy; Z79.82 Long term (current) use of aspirin; Z88.0 Allergy status to penicillin; Z88.8 Allergy status to other drugs, medicaments and biological substances; I10 Essential (primary) hypertension; K21.9 Gastro-esophageal reflux disease without esophagitis; R91.8 Other nonspecific abnormal finding of lung field; Z68.39 Body mass index [BMI] 39.0-39.9, adult; F10.10 Alcohol abuse, uncomplicated